=== PATIENT | female | born 1935 | race Caucasian/White ===

== ENCOUNTER 2016-12-26 20:42 | Emergency (ER) | payer MEDICARE, SELFPAY ==
[2016-12-26 19:18] LABS: BASOPHILS 0.2 %; BASOPHILS ABSOLUTE 0.01 10/3/uL (0.0-0.16); EOSINOPHILS 0.7 %; EOSINOPHILS ABSOLUTE 0.04 10/3/uL (0.0-0.53); ER CBC TAT 0 Hrs 05 Mins; IMMATURE GRANULOCYTES 0.2 %; IMMATURE GRANULOCYTES ABSOLUTE 0.01 10/3/uL (0.0-0.11); LYMPHOCYTES 23.2 %; LYMPHOCYTES ABSOLUTE 1.33 10/3/uL (0.67-4.30); MEAN CORPUSCULAR HEMOGLOB 30.5 pg (26.0-34.0); MEAN CORPUSCULAR VOLUME 87.4 fL (80-100); MONOCYTES 7.2 %; MONOCYTES ABSOLUTE 0.41 10/3/uL (0.21-1.20); NEUTROPHILS 68.5 %; NEUTROPHILS ABSOLUTE 3.93 10/3/uL (2.02-8.40); RBC DISTRIBUTION WIDTH 13.7 % (12.0-16.0); WHITE BLOOD CELLS 5.7 10/3/uL (4.5-10.5)
[2016-12-26 19:19] LABS: HEMATOCRIT 44.9 % (36.0-48.0); HEMOGLOBIN 15.7 g/dL (12.0-16.0); MANUAL DIFF NO %; PLATELET COUNT 201 10/3/uL (150-400); RED CELL COUNT 5.14 10/6/uL (4.0-5.6)
[2016-12-26 19:27] LABS: INTERNATIONAL NORMAL RATI 1.1 UNITS (-); PARTIAL THROMBO TIME 29.2 SEC (22.5-37.2); PROTIME (NOT ORD) 13.8 SEC (12.0-14.5)
[2016-12-26 19:36] LABS: BUN (BLOOD UREA NITROGEN) 21 MG/DL (6-23); CALCIUM, SERUM 9.1 MG/DL (8.5-10.4); CHEST PAIN PROFILE TAT 0 Hrs 23 Mins; CHLORIDE, SERUM 103 MMOL/L (96-112); CO2 (CARBON DIOXIDE) 28 MMOL/L (24-34); CREATININE 0.97 MG/DL (0.55-1.02); GFR AFRICAN AMERICAN 64 ML/MIN (>=60); GFR NON AFRICAN AMERICAN 56 ML/MIN (>=60); GLUCOSE, SERUM 146 MG/DL (60-99); POTASSIUM, SERUM 4.4 MMOL/L (3.5-5.3); SODIUM, SERUM 140 MMOL/L (135-148); TROPONIN I 0.02 NG/ML (<0.05)
[~2016-12-26 20:42] MED LIST: ACETSUP650 PR; ASAB PO; CALTRAT600 PO; CIP5 PO; ELIQUIS 2.5 MG2.5 MG PO; FISH OIL PO; GINKGO PO; GLUCOSAMINE PO; GLUCOSAMINEPO PO; LEVAQUIN750 MG PO; LEVOTHYROXIN125 MCG PO; LORTAB 5 PO; MAGGEL600 MG PO; MAGNESIUM TABLET PO; NATURA2 OP; OMNICEF300 PO; PROBIOTIC PO; RYTHMOL150 MG PO; SUPER B COMP PO; SYN1 PO; TYLENOL 8 HR650 MG PO; V180SR PO; V40 PO; VERAPAMIL; VERELAN180 MG PO; VITAMIN D1000 UNI1 PO; VITAMIN E PO; VITE PO; VITS; ZOFRAN4 PO; [UNRECOGNIZED DRUG - REMARK]
[2017-01-03] MEDS ORDERED: VITE PO (08:05)
[2017-01-03] MEDS ORDERED: GLUCOSAMINEPO PO (08:05)
[2017-01-03] MEDS ORDERED: SYN125 PO (08:05)
[2017-01-03] MEDS ORDERED: FISH OIL LIQUID PO (08:06)
[2017-01-03] MEDS ORDERED: VITAMIN C PO (08:06)
[2017-01-03] MEDS ORDERED: MULTIVITAMI1 PO (08:06)
[2017-01-04] MEDS ORDERED: ELIQUIS 5 MG TAB5 MG PO (09:03)
[2017-01-04] MEDS ORDERED: CARDCD180 PO (09:05)
[2017-01-04] MEDS ORDERED: C5 PO (11:23)
[2017-05-26] MEDS ORDERED: GLUCOSAMINEPO PO (18:01)
[2017-05-26] MEDS ORDERED: MAGNESIUM PO ×2 (18:02)
[2017-05-26] MEDS ORDERED: [UNRECOGNIZED DRUG - OTHER] PO (18:02)
[2017-05-26] MEDS ORDERED: [UNRECOGNIZED DRUG - OTHER] PO ×2 (18:02)
[2017-05-26] MEDS ORDERED: NEUR100 PO (18:03)
[2017-05-26] MEDS ORDERED: VITE PO (18:03)
[2017-05-26] MEDS ORDERED: SYN125 PO (18:03)
[2017-05-26] MEDS ORDERED: FISH OIL LIQUID PO (18:03)
[2017-05-26] MEDS ORDERED: BIST PO (18:04)
[2017-05-26] MEDS ORDERED: ASAB PO (18:04)
[2017-05-26] MEDS ORDERED: KLOR-CON 1010 MEQ PO (18:04)
[2017-05-31] MEDS ORDERED: PCET PO (17:52)
[2017-05-31] MEDS ORDERED: MIRALAX POWDER1 PKT PO (17:58)
[2017-05-31] MEDS ORDERED: ACETUDL PO (17:59)
== END 2016-12-26 20:52 | disposition home or self-care (01) ==
LOC: ER 20:42
PROVIDERS: Hospitalist
DX: R00.0 Tachycardia, unspecified (principal); I48.91 Unspecified atrial fibrillation; K58.9 Irritable bowel syndrome, unspecified; Z79.899 Other long term (current) drug therapy
CPT/HCPCS: 71020; 80048; 83735; 84484; 85025; 85610; 85730; 93005; 96374; 99285

== ENCOUNTER 2017-01-17 17:34 | Inpatient (IN) | payer MEDICARE, SELFPAY ==
--- NOTE | ~2017-01-17 | HP ---
History And Physical [id number] [place]. [address] NAME: ALEX THOMPSON : 37 STATUS : ADM IN [facility]#: [id number] AGE: 81 ADM/REG DATE : 01/17/17 MR#: [id number] REPORT SERV DATE: 01/18/17 DICTATED BY: DAVID BLAIR DATE: 01/17/17 REPORT STATUS : Draft TRANSCRIBED BY: MODL DATE: 01/17/17 DATE OF ADMISSION: 01/17/2017 CHIEF COMPLAINT: Abdominal pain. HISTORY OF PRESENT ILLNESS: This is a 81-year-old lady who was directly admitted from Dr. Saldivar' office for abdominal pain. The patient has a history of atrial fibrillation, not on any anticoagulation as well as hypothyroidism and IBS. The patient has had the abdominal pain for months and it is left-sided and it is very consistently postprandial. The patient will get abdominal pain within an hour of eating. Eating liquid makes it a little bit better, but the patient still has pain. The patient actually lost about 20 pounds over the past couple of months because the patient was scared of eating. The patient, otherwise, denies any nausea or vomiting. The patient also denies any loss of appetite. The patient denies any fevers, chills, or night sweats. The patient also denies any normal bowel habits. With the patient losing weight, the patient was seen by her PCP, who ordered a CT scan of the abdomen and pelvis with p.o. contrast. The CT scan was apparently benign other than gallbladder sludge. However, given the patient's continued weight loss, Dr. Saldivar was concerned and referred her as an inpatient for more evaluation and care. REVIEW OF SYSTEMS: The patient denies any fevers or chills. Also, 14-point review of systems reviewed and negative other than mentioned above. MEDICATIONS: The list is still pending at this time. ALLERGIES: NKDA. PAST MEDICAL HISTORY: 1. AFib and atrial flutter for which the patient is not on any anticoagulation. 2. Severe tricuspid regurg. 3. Mild aortic insufficiency. 4. Hypothyroidism. 5. IBS. 6. History of lung nodules, status post bronchoscopy with negative biopsy results. The patient is being considered for a possible needle biopsy. PAST SURGICAL HISTORY: 1. Small bowel obstruction due to adhesions from the past and required lysis of adhesions. 2. Appendectomy. 3. Thyroidectomy. FAMILY HISTORY: Coronary artery disease. SOCIAL HISTORY: The patient does not smoke, drink alcohol, or use any illicit drugs. 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 History And Physical [address] [address] NAME: ALEX THOMPSON : 37 STATUS : ADM IN [facility]#: [id number] AGE: 81 ADM/REG DATE : 01/17/17 MR#: [id number] REPORT SERV DATE: 01/18/17 DICTATED BY: DAVID BLAIR DATE: 01/17/17 REPORT STATUS : Draft TRANSCRIBED BY: LAURA DATE: 01/17/17 PHYSICAL EXAMINATION: VITAL SIGNS: Temperature 97.5, blood pressure 120/61, pulse 63, respiratory rate is 20, and saturating more than 95% on room air. GENERAL: The patient is alert and oriented x3 with no focal neurologic deficits. The patient is awake, does not appear to be in acute distress, and she is quite skinny. The patient is also cooperative. NECK: No JVD. No lymphadenopathy. Normal thyroid. CHEST: No midline sternotomy scar and no tenderness to palpation. LUNGS: Clear to auscultation bilaterally with normal respiratory effort on room air. CARDIOVASCULAR: Regular rate and rhythm with no murmurs, rubs, or gallops, and PMI is nondisplaced. ABDOMEN: Soft and nontender with active bowel sounds and no organomegaly. EXTREMITIES: No edema. Normal distal pulses. No calf tenderness. SKIN: Clean, dry, warm, and intact. LABORATORY DATA: There are none for now. ASSESSMENT: This is a 81-year-old lady with history of atrial fibrillation, irritable bowel syndrome, hypothyroidism, presenting with postprandial abdominal pains. 1. Postprandial abdominal pains with weight loss. 2. Chronic atrial fibrillation and atrial flutter, not on any anticoagulation. 3. Baseline history of irritable bowel syndrome. 4. Gallbladder sludge without cholecystitis per report received from PCP's office. There is no formal CT report for me to review at this time. 5. History of lung nodules with negative bronchoscopy pathology for malignancy. 6. Severe tricuspid regurgitation. 7. Mild aortic insufficiency. PLAN: My plan is to admit the patient under telemetry for observation overnight. I will go ahead and first check labs to include CMP and lactate. I will also check a prealbumin level. I will check ultrasound of the abdomen with Doppler to evaluate for any potential mesenteric ischemia. Also, go ahead and put a GI consultation. The patient will also be seen by Nutrition. I will request medical records from PCP's office to review the CT of the abdomen with p.o. contrast results. Further evaluation pending above initial evaluations. For the rest of stable past medical conditions, including atrial fibrillation, hypothyroidism, et al, I will continue home medications and monitor as needed. Standard DVT prophylaxis. The patient is full code at this time. Rubén/LAURA David Blair MD / [id number] History And Physical [address] [address] NAME: ALEX THOMPSON : 37 STATUS : ADM IN PAT#: [id number] AGE: 81 ADM/REG DATE : 01/17/17 MR#: [id number] REPORT SERV DATE: 01/18/17 DICTATED BY: DAVID BLAIR DATE: 01/17/17 REPORT STATUS : Draft TRANSCRIBED BY: LAURA DATE: 01/17/17 CC: MD Nimesh Suero M.D. Gregg Shander, M.D. Mark Thel, M.D.
--- NOTE | ~2017-01-17 | CN ---
Consultation Report [address] [place]. [address] NAME: ALEX THOMPSON : 39 STATUS : ADM IN [facility]#: [id number] AGE: 81 ADM/REG DATE : 01/17/17 MR#: [id number] REPORT SERV DATE: 01/18/17 DICTATED BY: JESÚS STUBBS DATE: 01/18/17 REPORT STATUS : Draft TRANSCRIBED BY: MODL DATE: 01/18/17 CONSULTATION DATE OF CONSULTATION: 01/18/2017 HISTORY OF PRESENT ILLNESS: This is a 81-year-old white female admitted with a three-month history of abdominal pain, weight loss, it is in the upper epigastric and radiating to the back. She had an outpatient CT, apparently had sludge and gallstones, has had pulmonary nodular disease with workup being negative biopsies today, but still being followed by Pulmonary. She has atrial fibrillation, flutter, on no anticoagulation as an outpatient. Also has severe tricuspid regurgitation and mild aortic insufficiency. She has had no nausea or vomiting. No change in bowel habits. She has had lysis of adhesions x2 in the past, Dr. Faisal Otero. She has also had appendectomy, has had tubal ligation. She has had cataract surgery. Has partial thyroidectomy, also . MEDICATIONS: None. SOCIAL HISTORY: Negative EtOH or nicotine. FAMILY HISTORY: Negative for colon cancer. LABORATORY DATA: White count 6100, hemoglobin 14.4, platelets 189,000. PHYSICAL EXAMINATION: GENERAL: Thin elderly white female, alert. HEENT: Anicteric. NECK: Negative. CHEST: Clear to percussion. HEART: Regular rate and rhythm. No murmur or gallop. ABDOMEN: Soft, nontender. Bowel sounds present. EXTREMITIES: Grossly intact. NEUROLOGY: Grossly intact. ASSESSMENT: 1. Abdominal pain and weight loss postprandially for three months and radiated to the back on occasion. 2. Nodular lung disease with negative workup to date. 3. Gallstone sludge seen on CT. 4. Hypothyroidism. 5. History of atrial fibrillation and flutter. 6. Tricuspid insufficiency and aortic insufficiency. 7. History lysis of adhesions x2. SUGGESTION: Consultation Report [address] [place]. [address] NAME: ALEX THOMPSON : 37 STATUS : ADM IN PAT#: [id number] AGE: 81 ADM/REG DATE : 01/17/17 MR#: [id number] REPORT SERV DATE: 01/18/17 DICTATED BY: JESÚS STUBBS DATE: 01/18/17 REPORT STATUS : Draft TRANSCRIBED BY: LAURA DATE: 01/18/17 1. Await mesenteric Doppler, it was done today. 2. Tentatively schedule for EGD tomorrow. 3. If both the above tests are negative, may want to consider surgical consult regarding the gallstones. We will follow with you. Thank you very much for consultation. AUSTEN/LAURA Jesús Stubbs M.D. / [id number] CC: MD Nimesh Suero M.D.
--- NOTE | ~2017-01-17 | PRECARD ---
[facility]&P [facility] [address] [place]. [address] NAME: MELL THOMPSON : 39 STATUS : ADM IN [facility]#: [id number] AGE: 81 ADM/REG DATE : 01/17/17 MR#: [id number] REPORT SERV DATE: 01/19/17 DICTATED BY: CHRIS POLLARD DATE: 01/19/17 REPORT STATUS : Draft TRANSCRIBED BY: LAURA DATE: 01/19/17 DATE OF ADMISSION: 01/17/2017 HISTORY OF PRESENT ILLNESS: Ms. Mell Thompson is a 81-year-old woman with history of atypical and typical atrial flutter, scheduled for cholecystectomy. Ms. Thompson has a history of atrial fibrillation. She has also a history of atrial flutter. She underwent an isthmus ablation by Dr. Black in 2007. She has refused anticoagulation multiple different times. More recently, she developed recurrent atrial flutter. This atrial flutter seems to be an atypical flutter. She continues to decline anticoagulation. She has seen Dr. Black twice. He has suggested sotalol because of the likely inability to successfully perform a radiofrequency ablation for this atypical flutter. She has bilateral atrial enlargement with severe tricuspid regurgitation. She has had no palpitations in the last week or so. She has had no orthopnea or PND. No stroke or stroke-like symptoms. She has had no bleeding. She has had no chest discomfort. PAST MEDICAL HISTORY: Hypothyroid, mitral regurgitation. MEDICATIONS: Synthroid, Protonix, sotalol b.i.d. FAMILY HISTORY: Noncontributory. REVIEW OF SYSTEMS: A complete review of systems obtained, pertinent negative and remarkable, except as noted above and below, all systems addressed. PHYSICAL EXAMINATION: VITAL SIGNS: Blood pressure about 105/55, heart rate 60 to 70. Telemetry demonstrates sinus rhythm. GENERAL: Comfortable, in no acute distress. HEENT: No xanthelasma. Lips without cyanosis. LUNGS: Clear to auscultation. No wheezes, rales, or rhonchi. Good breath sounds. COR: No JVD or hepatojugular reflux. No murmurs, rubs, or gallops. Impulse midclavicular line without carotid or abdominal bruits. Normal S1 and S2. ABDOMEN: Bowel sounds positive. Normal activity without tenderness, masses, or hepatosplenomegaly. EXTREMITIES: No edema or cyanosis. SKIN: Normal turgor. MS: Normal muscle strength without kyphosis/scoliosis. NEURO/PSYCH: Alert and oriented times 4. No apparent anxiety or depression. LABORATORY DATA: BUN is 19, creatinine 0.8. Hematocrit 41.2%. Again, telemetry [facility] [address] [address] NAME: MELL THOMPSON : 37 STATUS : ADM IN [facility]#: [id number] AGE: 81 ADM/REG DATE : 01/17/17 MR#: [id number] REPORT SERV DATE: 01/19/17 DICTATED BY: CHRIS POLLARD DATE: 01/19/17 REPORT STATUS : Draft TRANSCRIBED BY: LAURA DATE: 01/19/17 demonstrates sinus rhythm. ASSESSMENT: Ms. Thompson is a 81-year-old woman with cholecystitis and weight loss. She is scheduled for cholecystectomy. I think that is reasonable. If she has recurrent palpitations intraoperatively, I think diltiazem IV continuous infusion or metoprolol 5 mg boluses would most likely control her heart rate. Adenosine would only transiently lower her heart rate. She has been in sinus rhythm through this hospital stay. We will continue the sotalol. I will order an EKG, apparently it has not been performed this hospital stay. YASH/LAURA Chris Pollard M.D. / [id number] CC: MD Nimesh Suero M.D.
--- NOTE | ~2017-01-17 | OP ---
Record Of Operation [facility] [address] [place]. [address] NAME: ALEX THOMPSON : 37 STATUS : ADM IN PAT#: [id number] AGE: 81 ADM/REG DATE : 01/17/17 MR#: [id number] REPORT SERV DATE: 01/23/17 DICTATED BY: PEDRITO NOWAK JR. DATE: 01/23/17 REPORT STATUS : Draft TRANSCRIBED BY: MODL DATE: 01/23/17 DATE OF PROCEDURE: 01/23/2017 SURGEON: Pedrito Nowak MD MANAGER TERMINAL: Vilma Jorge. PROCEDURE: Exploratory laparotomy, lysis of adhesions, enterorrhaphy x2, and cholecystectomy. PREOPERATIVE DIAGNOSIS: Cholecystitis and abdominal pain. POSTOPERATIVE DIAGNOSIS: Cholecystitis and abdominal pain with small bowel obstruction. ANESTHESIA: General. INDICATIONS: The patient has presented with abdominal pain, nausea, and weight loss. Imaging does show an abnormal gallbladder. She has had previous small bowel obstruction with operation and smaller resection. Operation for cholecystectomy was indicated. FINDINGS: On initial entrance into the abdomen and the periumbilical region, there were noted to be extensive adhesions of the bowel to the overlying perineum. There was evidence of small bowel obstruction with dilatation of the bowel. With these bowel loops dissected free, there was dense adherence that required repair of the bowel in 2 places. The gallbladder was distended and was removed. It was felt that the source of the pain was very possibly the small bowel obstruction. No other significant abnormalities were encountered. DESCRIPTION OF PROCEDURE: With adequate general anesthesia, the patient was placed in the supine position. The abdomen was prepped and sterilely. 0.5% Marcaine was used for local infiltration. Midline incision was made at the umbilicus. This was deepened through the subcutaneous tissues. The fascia and perineum were opened and the above-noted findings were encountered. Then, the incision was extended. The underlying adhesions were dissected sharply and the bowel was freed up entirely. Areas of the small bowel then repaired with sutures of 3-0 silk repair. Once this was accomplished, the gallbladder was identified, it was taken again in retrograde fashion. Cystic duct and artery were identified, clipped, and divided securing the duct with 2 clips. Bleeding within the bed was controlled with electrocautery. The abdomen was irrigated with copious amounts of saline. Hemostasis was assured. Then, the wound was closed by approximating the fascia with running 0 PDS, subcutaneous Vicryl, and subcuticular Monocryl. Sterile dressing was applied. The patient left the operating room in satisfactory condition. BLOOD LOSS: Was 30 mL. Record Of Operation [address] [address] NAME: ALEX THOMPSON : 37 STATUS : ADM IN [facility]#: [id number] AGE: 81 ADM/REG DATE : 01/17/17 MR#: [id number] REPORT SERV DATE: 01/23/17 DICTATED BY: PEDRITO NOWAK JR. DATE: 01/23/17 REPORT STATUS : Draft TRANSCRIBED BY: LAURA DATE: 01/23/17 TARAH/LAURA Pedrito Nowak Jr., M.D. / [id number] CC: MD Nimesh Suero M.D.
--- NOTE | ~2017-01-17 | IDS ---
Interim Discharge Summary [facility] [address] [place]. [address] NAME: ALEX THOMPSON : 37 STATUS : ADM IN [facility]#: [id number] AGE: 81 ADM/REG DATE : 01/17/17 MR#: [id number] REPORT SERV DATE: 02/02/17 DICTATED BY: JESÚS BAGLEY DATE: 02/01/17 REPORT STATUS : Draft TRANSCRIBED BY: MODL DATE: 02/01/17 ADMISSION DATE: 01/17/2017 DISCHARGE DATE: Interim summary covers period 01/24/2017 through 02/01/2017. CURRENT DIAGNOSES: 1. Recurrent partial bowel obstruction, postoperative exploratory laparotomy, lysis of adhesions, enterorrhaphy x2, and cholecystectomy, 01/23/2017, for cholecystitis and abdominal pain with small-bowel obstruction. 2. Intermittent small volume upper gastrointestinal bleeding with continuous NG tube suction. 3. Paroxysmal atrial fibrillation with remote history of ablation, not on anticoagulation per the patient's choice. 4. Tricuspid and aortic regurgitation per echocardiography. 5. Nonsustained ventricular tachycardia on telemetry monitoring, not persistent. 6. History of splenic artery aneurysms. 7. Renal stone disease. 8. Glaucoma, postsurgery. 9. Multiple bilateral pulmonary nodules, status post bronchoscopy, navigational bronchoscopy, and radial endobronchial ultrasound, 10/28/2016, with negative histology for malignancy. 10.Weight loss. 11.Hypothyroid with mildly elevated TSH, noting recent outpatient dosage adjustment. 12.Electrolyte abnormalities, treated. 13.Diffuse myalgias and arthralgias associated with postoperative complications, improved. 14.Severe throat and ear pain secondary to prolonged nasogastric tube use. OPERATIONS AND PROCEDURES: During this time period, none. INTERIM SUMMARY: This is a 81-year-old white female, who was a direct admission on 01/17/[address] Moss with postprandial abdominal pain with weight loss. HOSPITAL COURSE: Her hospital course from admission through 01/23/2017 is as outlined on the interim summary dictated by Dr. Moss. She was initially seen by me on 01/24/2017. She was one day postoperative. She was tolerating liquids without nausea or vomiting. She was out of bed with no cardiovascular symptoms. She subsequently developed abdominal distention and pain. An NG tube was placed and 900 mL of gastric secretions were almost immediately obtained. Her symptoms improved. Over the last week, she has required continued NG tube drainage because of persistent ileus versus partial small-bowel obstruction by exam and plain radiographs. Interim Discharge Summary [address] [place]. [address] NAME: ALEX THOMPSON : 37 STATUS : ADM IN PAT#: [id number] AGE: 81 ADM/REG DATE : 01/17/17 MR#: [id number] REPORT SERV DATE: 02/02/17 DICTATED BY: JESÚS BAGLEY DATE: 02/01/17 REPORT STATUS : Draft TRANSCRIBED BY: MODZoe DATE: 02/01/17 She has had some intermittent blood tinged NG aspirate that has been thought secondary to possible NG tube irritation. She is on a Protonix drip with a stable hemoglobin. Today, she underwent a water soluble Gastrografin GI and small-bowel follow-through. Findings are dilated small bowel loops throughout the abdomen. Contrast does propagate through the small bowel and appears to reach the ascending colon after approximately 90 minutes, reaching the hepatic flexure after approximately three hours. Findings were thought to represent partial obstruction or severe ileus. There was a normal appearance of the stomach and duodenum. Splenic artery aneurysms measuring 3.1 and 2 cm similar to previous imaging present. She is being followed by Dr. Otero. Further therapy to be dictated by him pending improvement in bowel function with Gastrografin. She has had some paroxysms of atrial fibrillation, but currently is back in a sinus rhythm. She initially was treated with amiodarone, but developed bradycardia. It is thought she may need a future ablation, but at this time Cardiology is satisfied with her current progress. Hospitalist care will be assumed by Dr. Moss on 02/02/2017. DD/LAURA Jesús Bagley M.D. / [id number] CC: Julisa Barajas M.D.
--- NOTE | ~2017-01-17 | CN ---
Consultation Report [facility] [address] [place]. [address] NAME: ALEX THOMPSON : 37 STATUS : ADM IN PAT#: [id number] AGE: 81 ADM/REG DATE : 01/17/17 MR#: [id number] REPORT SERV DATE: 01/24/17 DICTATED BY: TRAY SIN DATE: 01/24/17 REPORT STATUS : Draft TRANSCRIBED BY: LAURA DATE: 01/24/17 ELECTROPHYSIOLOGY CONSULTATION DATE OF CONSULTATION: 01/24/2017 REASON FOR CONSULTATION: Tachy-franklin syndrome. HISTORY OF PRESENT ILLNESS: Ms. Thompson is a pleasant 81-year-old woman whom I had seen recently at the [facility] in consult from her primary slat pickler, Dr. Pollard. The patient had presented to the hospital this time with complaints of abdominal pain and bloating and it was eventually discovered to be secondary to cholecystitis and she has undergone a cholecystectomy. Telemetry and EKGs had demonstrated sinus bradycardia while taking the sotalol. There was one episode of what appears to be atypical atrial flutter on 01/19/2017 that terminated spontaneously. Because she could not take the sotalol because of bradycardia and she was having pending surgery, she supposed to be started on amiodarone which she is currently taking at 200 mg daily, and at the present time, she appears to be maintaining sinus rhythm without any significant bradycardia. At this point in time, she feels fine on the amiodarone. She does, however, have long-term concern about this medication due to its multiple side effects. PAST MEDICAL HISTORY: 1. Notable for cholecystitis, status post cholecystectomy on this admission. 2. History of typical atrial flutter, status post radiofrequency ablation by la in 2007. 3. Atypical atrial flutter documented on previous admissions also noted on this admission as well. 4. Most likely an element of sick sinus syndrome. The patient with profound bradycardia taking low-dose sotalol. 5. Hypothyroidism. 6. Severe tricuspid regurgitation. Mild mitral regurgitation. Normal ejection fraction. HOME MEDICATIONS: Include sotalol which she is currently not taking, but at the time of admission, she was only taking a quarter of a tablet 20 mg q.12 hours, levothyroxine, and fish oil. FAMILY HISTORY: Negative for premature coronary artery disease or sudden cardiac . SOCIAL HISTORY: Negative for tobacco or alcohol. REVIEW OF SYSTEMS: As noted above, all other systems reviewed and negative. PHYSICAL EXAMINATION: VITAL SIGNS: Currently in sinus rhythm. Heart rate of 76 beats per minute, blood pressure 108/52, respirations 16, and afebrile. Consultation Report [facility] [address] [place]. [address] NAME: ALEX THOMPSON : 39 STATUS : ADM IN [facility]#: [id number] AGE: 81 ADM/REG DATE : 01/17/17 MR#: [id number] REPORT SERV DATE: 01/24/17 DICTATED BY: TRAY SIN DATE: 01/24/17 REPORT STATUS : Draft TRANSCRIBED BY: LAURA DATE: 01/24/17 GENERAL: Well developed, well nourished. HEENT: No icterus. Good dentition. NECK: Supple. No masses or thyromegaly LUNGS: Breathing comfortably. No rales or wheezes. COR: Normal S1, S2. No S3 or S4. No murmurs, clicks, rubs. No JVD ABD: Soft, nondistended, nontender, no hepatosplenomegaly. EXT: No clubbing, cyanosis or edema. Peripheral pulses 2+/=bilaterally. SKIN: Warm and dry. No visible lesions. MS: Chest wall without deformity, no obvious clavicular fractures. NEURO/PSYCH: Oriented X3. No anxiety or depression. IMAGING: There are multiple EKGs in the chart. Some of which show sinus bradycardia on admission while she was taking sotalol. There are other EKGs demonstrating what appears to be an atypical atrial flutter at a rate of 142 beats per minute. There are other EKG showing normal sinus rhythm at normal intervals. 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 On sotalol, she has demonstrated sinus bradycardia. She has had some breakthrough events, but the dose of sotalol has been so low. It is hard to say if it is ineffective or not. Currently, she is on amiodarone and seems to be tolerating this medication well without any significant side effects and is not having any profound bradycardia. I think for the present time, I would recommend that she remain on the amiodarone and get through her surgery and now her recovery from her cholecystectomy. I would be glad to see her back in the office in which case if we decide that we wanted to try to use sotalol again in place of the amiodarone likely we would need to place a permanent pacemaker as well due to the patient's sick sinus syndrome and tendency for severe symptomatic sinus bradycardia at least while receiving even low-dose antiarrhythmic agents. GS/MODL Tray Sin M.D. / [id number] CC: Julisa Barajas M.D.
--- NOTE | ~2017-01-17 | IDS ---
Interim Discharge Summary [facility] [address] [place]. [address] NAME: ALEX THOMPSON : 37 STATUS : ADM IN PAT#: [id number] AGE: 81 ADM/REG DATE : 01/17/17 MR#: [id number] REPORT SERV DATE: 01/23/17 DICTATED BY: DAVID BLAIR DATE: 01/23/17 REPORT STATUS : Draft TRANSCRIBED BY: MODL DATE: 01/23/17 ADMISSION DATE: 01/17/2017 DISCHARGE DATE: WORKING DIAGNOSES: 1. Partial small bowel obstruction. 2. Postprandial abdominal pain. 3. Unintentional weight loss. 4. Gallstone and sludge, status post laparoscopic cholecystectomy today (01/23/2017). 5. Atrial fibrillation with rapid ventricular response, controlled with amiodarone. The patient does have a baseline history of atrial fibrillation with rapid ventricular response. 6. Nodular lung disease, has been worked up for malignancy with bronchoscopic biopsies, which has been negative thus far. Outside followup chest CT did not reveal overt changes. There is perhaps plans for needle biopsy in the future based on the patient's preference. 7. Irritable bowel syndrome. 8. Hypothyroidism. CONSULTANTS: 1. Dr. Otero of Surgery. 2. Dr. Castillo of GI. 3. [facility] Cardiology. PROCEDURES: 1. EGD performed on 01/19/2017, revealed grossly normal upper GI tract. 2. Laparoscopic cholecystectomy performed today, 01/23/2017, operative report is still pending at this time. HOSPITAL COURSE: This is a 81-year-old lady, who was admitted to the hospital with postprandial abdominal pain with unintentional weight loss. For details, please refer to my own H and P. In summary, the patient was admitted and was given supportive care. The patient had a mesenteric ultrasound, which was negative for any bowel ischemia. GI was consulted and performed an EGD on 01/19/2017, with grossly benign findings as mentioned above. The patient's labs have been completely benign including CBC, LFTs, and lactate. The patient did have a cholelithiasis without cholecystitis as well as some biliary sludge. General Surgery was then consulted, and cholecystectomy was planned. Cardiology was consulted for cardiac clearance and that is when the patient developed an atrial fibrillation with RVR over the weekend. The patient does have a baseline history of atrial fibrillation that was controlled with sotalol, but as the patient had borderline hypotension, this was switched to amiodarone. The patient actually have converted to normal sinus and actually became sinus bradycardic and thus dose adjustment is being made for the amiodarone. The patient underwent cholecystectomy today and the official operative report is still pending at this time, but apparently, the partial small bowel obstruction was identified in the operating room, which may explain the patient's symptoms better than gallstones and sludge. Of note, this partial small bowel obstruction was not identified on Interim Discharge Summary [address] [address] NAME: ALEX THOMPSON : 37 STATUS : ADM IN PAT#: [id number] AGE: 81 ADM/REG DATE : 01/17/17 MR#: [id number] REPORT SERV DATE: 01/23/17 DICTATED BY: DAVID BLAIR DATE: 01/23/17 REPORT STATUS : Draft TRANSCRIBED BY: MODZoe DATE: 01/23/17 CT of the abdomen and pelvis that was performed outside at the PCPs office. The patient has a history of nodular lung disease that is highly suspicious for malignancy. The patient did have a bronchoscopic biopsy of the lesions performed earlier this year that has been negative. The patient had a followup CT scan through the PCP, and per outside report, her lung lesions have not gotten worse. The patient is being considered for a needle biopsy as an outpatient, and she will need to continue to follow with Pulmonology. Otherwise, the patient has not had any other acute issues. I anticipate the patient will be able to be discharged home soon. HERBER/LAURA David Blair MD / [id number] CC: MD Nimesh Suero M.D.
--- NOTE | ~2017-01-17 | EGD ---
EGD REPORT [facility] [address] [place] [address] NAME: MELL THOMPSON : 37 STATUS : ADM IN PAT#: [id number] AGE: 81 ADM/REG DATE : 01/17/17 MR#: [id number] REPORT SERV DATE: 01/19/17 DICTATED BY: JESÚS STUBBS DATE: 01/19/17 REPORT STATUS : Draft TRANSCRIBED BY: [employer] DATE: 01/19/17 Endoscopy Center Patient Name: Mell Thompson Date of : 1935 Attending MD: JESÚS STUBBS MD Procedure Date No Time: 01/19/2017 Procedure: Upper GI endoscopy Indications: Epigastric abdominal pain, Weight loss Referring MD: DANIEL JOHNSON Medicines: as per anesthesia Complications: No immediate complications. Procedure: Pre-Anesthesia Assessment: - ASA Grade Assessment: III - A patient with severe systemic disease. After obtaining informed consent, the endoscope was passed under direct vision. Throughout the procedure, the patient's blood pressure, pulse, and oxygen saturations were monitored continuously. The GIF [id number] was introduced through the mouth, and advanced to the third part of duodenum. The upper GI endoscopy was accomplished without difficulty. The patient tolerated the procedure. Findings: The examined esophagus was normal. The entire examined stomach was normal. The cardia and gastric fundus were normal on retroflexion. The examined duodenum was normal. Impression: - Normal esophagus. - Normal stomach. - Normal examined duodenum. Recommendation: - Continue present medications. Procedure Code(s): --- Professional --- 56373, Esophagogastroduodenoscopy, flexible, transoral; diagnostic, including collection of specimen(s) by brushing or washing, when performed (separate procedure) Diagnosis Code(s): --- Professional --- R10.13, Epigastric pain R63.4, Abnormal weight loss EGD REPORT [facility] [address] [place]. [address] NAME: MELL THOMPSON : 37 STATUS : ADM IN [facility]#: [id number] AGE: 81 ADM/REG DATE : 01/17/17 MR#: [id number] REPORT SERV DATE: 01/19/17 DICTATED BY: JESÚS STUBBS. DATE: 01/19/17 REPORT STATUS : Draft TRANSCRIBED BY: [employer] DATE: 01/19/17 CPT copyright 2013 [employer]. All rights reserved. The codes documented in this report are preliminary and upon window shade ring coverer review may be revised to meet current compliance requirements. JESÚS STUBBS MD 01/19/2017 1:50 PM This report has been signed electronically. Number of Addenda: 0 Note Initiated On: 01/19/2017 1:21 PM Scope Withdrawal Time 0 hours 0 minutes 0 seconds [address] [place] [address]
--- NOTE | ~2017-01-17 | DS ---
Discharge Summary [facility] [address] [place]. [address] NAME: ALEX THOMPSON : 37 STATUS : DIS IN PAT#: [id number] AGE: 81 ADM/REG DATE : 01/17/17 MR#: [id number] REPORT SERV DATE: 02/12/17 DICTATED BY: JESÚS SALAZAR DATE: 02/11/17 REPORT STATUS : Draft TRANSCRIBED BY: MODL DATE: 02/11/17 ADMISSION DATE: 01/17/2017 DISCHARGE DATE: 02/11/2017 DISCHARGE DIAGNOSES: 1. Recurrent partial bowel obstruction, postoperative exploratory laparotomy, lysis of adhesions, enterorrhaphy x2, and cholecystectomy, 01/23/2017, for cholecystitis and abdominal pain with small-bowel obstruction. 2. Prolonged ileus. 3. Intermittent small volume upper gastrointestinal bleeding with continuous NG tube suction. 4. Paroxysmal atrial flutter with remote history of ablation, possible atypical flutter, not on anticoagulation per the patient's choice. Treated intermittently during hospitalization with amiodarone, discontinued because of bradycardia, discharged in sinus rhythm. 5. Tricuspid and aortic regurgitation per echocardiography. 6. Nonpersistent, nonsustained ventricular tachycardia, on telemetry monitoring. 7. 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 8. Renal stone disease. 9. Glaucoma, post surgery. 10.Multiple bilateral pulmonary nodules, status post bronchoscopy, navigational bronchoscopy, and radial endobronchial ultrasound, 10/28/2016, with negative histology for malignancy. 11.Weight loss. 12.Hypothyroid with mildly elevated TSH on admission, higher TSH during hospitalization thought to be from impaired Synthroid absorption. 13.Multiple electrolyte abnormalities, treated. 14.Diffuse myalgias and arthralgias associated with postoperative complications, resolved. 15.Remarkably severe throat and ear pain secondary to prolonged nasogastric tube use, resolved. OPERATIONS AND PROCEDURES: Exploratory laparotomy, lysis of adhesions, enterorrhaphy x2, and cholecystectomy, 01/23/2017, Dr. Otero. PRESENT ILLNESS: This is a 81-year-old white female, who was a direct admission on 01/17/[address] Moss with postprandial abdominal pain with weight loss. Her hospital course from admission through 01/23/2017 is as outlined on interim summary dictated by Dr. Moss. Her hospital course from 01/24/2017 through 02/01/2017 is as outlined on interim summary dictated by the undersigned. She was seen by Dr. Menezes on 02/02/2017, 02/03/2017, and 02/04/[address] Moss on 02/05/2017 and 02/06/2017. Discharge Summary [facility] [address] [place]. [address] NAME: ALEX THOMPSON : 37 STATUS : DIS IN PAT#: [id number] AGE: 81 ADM/REG DATE : 01/17/17 MR#: [id number] REPORT SERV DATE: 02/12/17 DICTATED BY: JESÚS SALAZAR DATE: 02/11/17 REPORT STATUS : Draft TRANSCRIBED BY: MODL DATE: 02/11/17 Her hospitalist care was assumed by the undersigned again on 02/07/2017 and she was followed until discharge. She continued to have intermittent abdominal symptoms consistent with ileus/partial small- bowel obstruction. On 02/08/2017, she was seen at 1720 hours with pain and nausea. She was frankly miserable. She had not had a bowel movement or gas per rectum. She was belching sour-tasting secretions. She looked worse than she had before. She was in atrial flutter. She had an obstructive bowel sound pattern with abdominal distention, though her abdomen was soft. She subsequently developed some chest pain followed by generalized pain. Her evaluation included an EKG that showed atrial flutter with PVCs. A CMP was normal except her BUN had increased to 19 and creatinine to 1.11. A TSH had increased to 22.2. Her potassium was 5.2, mag 2.2, phosphorus 3.2, ionized calcium 4.5, and lactate 1.8. A CBC showed a white count of 9.8, hemoglobin 15.2, and platelets of 437,000. A flat and upright abdominal film was remarkable for gaseous distention of the gastric lumen and small bowel loops. The intestinal pattern was consistent with ileus versus obstruction. She had significant air-fluid levels. She was placed n.p.o. Her Eliquis was held. She did not want an NG tube. She was given aggressive crystalloid volume resuscitation in addition to parenteral medications for pain and nausea control. I spoke with Dr. Otero, who concurred with this therapy. On the following day, she had symptomatically improved. Her nausea was less intense. She began to have bowel movements. A repeat flat and upright abdomen showed similar bowel gas pattern. With hydration, her BUN and creatinine had fallen. Dr. Otero suggested continuing current therapy and considering a repeat small bowel follow- through or CT abdomen with contrast. Her symptoms continued to improve. She developed diarrhea. Her abdominal pain resolved. Her nausea resolved. On the afternoon of 02/10/2017, she thought she could eat some homemade vegetable soup. With this p.o. intake, she had no recurrent nausea, vomiting, bloating, pain, or diarrhea and she overall felt better. After prolonged discussion with her and her daughter on the evening of 02/10/2017 and the morning of 02/11/2017, it was elected to pursue a repeat CT scan with contrast to evaluate her current symptoms, recurrent left upper quadrant pain, which she thought was different from her ileus/bowel obstruction pain, and to assess the status of her splenic artery aneurysms. This was done on 02/11/2017. I spoke with Dr. South, reading radiologist, who reviewed Discharge Summary [address] [address] NAME: ALEX THOMPSON : 37 STATUS : DIS IN PAT#: [id number] AGE: 81 ADM/REG DATE : 01/17/17 MR#: [id number] REPORT SERV DATE: 02/12/17 DICTATED BY: JESÚS SALAZAR DATE: 02/11/17 REPORT STATUS : Draft TRANSCRIBED BY: MODL DATE: 02/11/17 these films. Findings were mildly distended loops of small bowel with wall thickening and air-fluid levels present in a nonobstructive pattern suggestive of ileus. There was a small amount of free fluid in the cul-de-sac. There was fluid within the endometrium of the uterus with calcification of the myometrium. There were small bilateral pleural effusions. No other acute abnormalities were seen. Her splenic artery aneurysms per Dr. South were less than 2 cm. This was reviewed with the patient and daughter. She thought that she would like a trial at home on a home diet, 6 small feedings per day with p.r.n. medications for pain and nausea. With her clinical improvement, this seemed reasonable. She had been seen earlier by Dr. Garcia for Dr. Otero, who concurred. After her acute GI episode on 02/08/2017, she reverted to sinus rhythm with some PVCs. EP thought that she would need a repeat ablation, but elected to defer this at this time. They also suggested Eliquis which the patient had not wanted to use in the past and does not want to use at this time. She is being discharged home today with outpatient followup to see Dr. Saldivar in one to two weeks, her primary care physician, and Dr. Pollard on 03/02/2017. She will eat 6 small meals per day. Her activity will be as tolerated. DISCHARGE MEDICATIONS: Synthroid 125 mcg daily with followup TSH in two to four weeks, Protonix 40 mg twice daily for 30 days, vitamin E 400 units daily, glucosamine 1500 mg daily, fish oil 30 mL daily, vitamin C daily, multivitamin daily, Zofran 4 mg ODT every 4 hours as needed for nausea, Percocet 5/325 every four to six hours as needed for severe pain. She will not use Betapace or amiodarone at this time. She does not plan to take Eliquis. Discharge time greater than 30 minutes. DD/MODL Jesús Salazar M.D. / [id number] CC: Julisa Barajas M.D. John Gwin Jr., M.D. Mark Thel, M.D.
[~2017-01-17 17:34] MED LIST changes: +C5 PO; +CARDCD180 PO; +ELIQUIS 5 MG TAB5 MG PO; +FISH OIL LIQUID PO; +MULTIVITAMI1 PO; +SYN125 PO; +VITAMIN C PO
[2017-01-17] MEDS ORDERED: BETAPACE80 PO (18:50)
[2017-01-17 20:19] LABS: BASOPHILS 0.2 %; BASOPHILS ABSOLUTE 0.01 10/3/uL (0.0-0.16); EOSINOPHILS 0.7 %; EOSINOPHILS ABSOLUTE 0.04 10/3/uL (0.0-0.53); HEMATOCRIT 39.3 % (36.0-48.0); HEMOGLOBIN 13.7 g/dL (12.0-16.0); IMMATURE GRANULOCYTES 0.2 %; IMMATURE GRANULOCYTES ABSOLUTE 0.01 10/3/uL (0.0-0.11); LYMPHOCYTES 23.1 %; MANUAL DIFF NO %; MEAN CORPUS HGB CONC 34.9 g/dL (32.0-36.0); MEAN CORPUSCULAR HEMOGLOB 30.1 pg (26.0-34.0); MEAN CORPUSCULAR VOLUME 86.4 fL (80-100); MEAN PLATELET VOLUME 10.6 fL (9.2-13.0); MONOCYTES 8.9 %; MONOCYTES ABSOLUTE 0.54 10/3/uL (0.21-1.20); NEUTROPHILS 66.9 %; NEUTROPHILS ABSOLUTE 4.06 10/3/uL (2.02-8.40); PLATELET COUNT 176 10/3/uL (150-400); RBC DISTRIBUTION WIDTH 13.4 % (12.0-16.0); RED CELL COUNT 4.55 10/6/uL (4.0-5.6); WHITE BLOOD CELLS 6.1 10/3/uL (4.5-10.5)
[2017-01-17 20:43] LABS: A/G RATIO 1.2 (0.7-1.9); ALBUMIN 3.6 G/DL (3.5-5.0); ALKALINE PHOSPHATASE 69 U/L (45-117); BUN (BLOOD UREA NITROGEN) 21 MG/DL (6-23); CHLORIDE, SERUM 103 MMOL/L (96-112); CO2 (CARBON DIOXIDE) 26 MMOL/L (24-34); CREATININE 0.82 MG/DL (0.55-1.02); FREE T4 1.39 NG/DL (0.76-1.46); GFR AFRICAN AMERICAN 79 ML/MIN (>=60); GFR NON AFRICAN AMERICAN 68 ML/MIN (>=60); GLOBULIN 3.1 G/DL (2.5-4.1); POTASSIUM, SERUM 4.2 MMOL/L (3.5-5.3); SGOT(AST) 16 U/L (5-40); SGPT(ALT) 21 U/L (5-65); SODIUM, SERUM 138 MMOL/L (135-148); TOTAL BILIRUBIN 0.6 MG/DL (0-1.2); TOTAL PROTEIN 6.7 G/DL (6.0-8.5)
[2017-01-17 20:44] LABS: GLUCOSE, SERUM 92 MG/DL (60-99)
[2017-01-18 04:53] LABS: BASOPHILS 0.2 %; BASOPHILS ABSOLUTE 0.01 10/3/uL (0.0-0.16); EOSINOPHILS 0.8 %; EOSINOPHILS ABSOLUTE 0.05 10/3/uL (0.0-0.53); HEMATOCRIT 41.2 % (36.0-48.0); HEMOGLOBIN 14.4 g/dL (12.0-16.0); IMMATURE GRANULOCYTES 0.2 %; IMMATURE GRANULOCYTES ABSOLUTE 0.01 10/3/uL (0.0-0.11); LYMPHOCYTES 21.7 %; LYMPHOCYTES ABSOLUTE 1.33 10/3/uL (0.67-4.30); MEAN CORPUSCULAR HEMOGLOB 30.1 pg (26.0-34.0); MEAN CORPUSCULAR VOLUME 86.2 fL (80-100); MEAN PLATELET VOLUME 10.4 fL (9.2-13.0); MONOCYTES 7.3 %; MONOCYTES ABSOLUTE 0.45 10/3/uL (0.21-1.20); NEUTROPHILS 69.8 %; NEUTROPHILS ABSOLUTE 4.28 10/3/uL (2.02-8.40); PLATELET COUNT 189 10/3/uL (150-400); RBC DISTRIBUTION WIDTH 13.1 % (12.0-16.0); RED CELL COUNT 4.78 10/6/uL (4.0-5.6); WHITE BLOOD CELLS 6.1 10/3/uL (4.5-10.5)
[2017-01-18 04:58] LABS: MANUAL DIFF NO %
[2017-01-18 05:11] LABS: BUN (BLOOD UREA NITROGEN) 19 MG/DL (6-23); CALCIUM, SERUM 9.4 MG/DL (8.5-10.4); CHLORIDE, SERUM 103 MMOL/L (96-112); CO2 (CARBON DIOXIDE) 26 MMOL/L (24-34); GFR AFRICAN AMERICAN 81 ML/MIN (>=60); GFR NON AFRICAN AMERICAN 70 ML/MIN (>=60); GLUCOSE, SERUM 102 MG/DL (60-99); POTASSIUM, SERUM 3.9 MMOL/L (3.5-5.3); SODIUM, SERUM 140 MMOL/L (135-148)
[2017-01-18 05:58] LABS: PREALBUMIN 22.5 MG/DL (17.0-43.0)
[2017-01-19 23:03] LABS: TROPONIN I <0.02 NG/ML (<0.05)
[2017-01-19 23:04] LABS: CPK 48 U/L (0-200)
[2017-01-20 06:51] LABS: CPK 50 U/L (0-200); TROPONIN I <0.02 NG/ML (<0.05)
[2017-01-20 06:52] LABS: CK-MB 1.1 NG/ML
[2017-01-20 14:42] LABS: CPK 54 U/L (0-200); TROPONIN I <0.02 NG/ML (<0.05)
[2017-01-20 14:43] LABS: CK-MB 1.1 NG/ML
[2017-01-22 08:22] LABS: BASOPHILS 0.2 %; BASOPHILS ABSOLUTE 0.01 10/3/uL (0.0-0.16); EOSINOPHILS 0.7 %; EOSINOPHILS ABSOLUTE 0.04 10/3/uL (0.0-0.53); HEMOGLOBIN 12.6 g/dL (12.0-16.0); IMMATURE GRANULOCYTES 0.2 %; IMMATURE GRANULOCYTES ABSOLUTE 0.01 10/3/uL (0.0-0.11); LYMPHOCYTES 28.1 %; LYMPHOCYTES ABSOLUTE 1.65 10/3/uL (0.67-4.30); MEAN CORPUS HGB CONC 35.2 g/dL (32.0-36.0); MEAN CORPUSCULAR VOLUME 85.2 fL (80-100); MEAN PLATELET VOLUME 10.8 fL (9.2-13.0); MONOCYTES 8.5 %; NEUTROPHILS 62.3 %; NEUTROPHILS ABSOLUTE 3.67 10/3/uL (2.02-8.40); PLATELET COUNT 146 10/3/uL (150-400); RBC DISTRIBUTION WIDTH 13.5 % (12.0-16.0); WHITE BLOOD CELLS 5.9 10/3/uL (4.5-10.5)
[2017-01-22 08:24] LABS: HEMATOCRIT 35.8 % (36.0-48.0); MANUAL DIFF NO %
[2017-01-22 08:29] LABS: INTERNATIONAL NORMAL RATI 1.3 UNITS (-); PROTIME (NOT ORD) 16.1 SEC (12.0-14.5)
[2017-01-22 08:48] LABS: A/G RATIO 1.3 (0.7-1.9); ALKALINE PHOSPHATASE 58 U/L (45-117); BUN (BLOOD UREA NITROGEN) 8 MG/DL (6-23); CALCIUM, SERUM 8.4 MG/DL (8.5-10.4); CHLORIDE, SERUM 105 MMOL/L (96-112); CO2 (CARBON DIOXIDE) 26 MMOL/L (24-34); CREATININE 0.99 MG/DL (0.55-1.02); GFR AFRICAN AMERICAN 63 ML/MIN (>=60); GFR NON AFRICAN AMERICAN 54 ML/MIN (>=60); GLOBULIN 2.4 G/DL (2.5-4.1); GLUCOSE, SERUM 102 MG/DL (60-99); POTASSIUM, SERUM 4.1 MMOL/L (3.5-5.3); SGOT(AST) 15 U/L (5-40); SGPT(ALT) 23 U/L (5-65); SODIUM, SERUM 138 MMOL/L (135-148); TOTAL BILIRUBIN 0.7 MG/DL (0-1.2); TOTAL PROTEIN 5.4 G/DL (6.0-8.5)
[2017-01-22 09:15] LABS: PHOSPHORUS, SERUM 2.7 MG/DL (2.5-4.5)
[2017-01-24 05:52] LABS: BASOPHILS 0 %; EOSINOPHILS 0 %; HEMATOCRIT 34.7 % (36.0-48.0); IMMATURE GRANULOCYTES 0.2 %; IMMATURE GRANULOCYTES ABSOLUTE 0.02 10/3/uL (0.0-0.11); LYMPHOCYTES ABSOLUTE 0.57 10/3/uL (0.67-4.30); MEAN CORPUS HGB CONC 34.6 g/dL (32.0-36.0); MEAN CORPUSCULAR HEMOGLOB 30.1 pg (26.0-34.0); MEAN PLATELET VOLUME 11.3 fL (9.2-13.0); MONOCYTES 7.3 %; MONOCYTES ABSOLUTE 0.83 10/3/uL (0.21-1.20); NEUTROPHILS 87.5 %; NEUTROPHILS ABSOLUTE 9.97 10/3/uL (2.02-8.40); PLATELET COUNT 160 10/3/uL (150-400); RBC DISTRIBUTION WIDTH 13.7 % (12.0-16.0); RED CELL COUNT 3.99 10/6/uL (4.0-5.6)
[2017-01-24 05:53] LABS: MANUAL DIFF NO %; WHITE BLOOD CELLS 11.4 10/3/uL (4.5-10.5)
[2017-01-24 05:58] LABS: ALBUMIN 2.6 G/DL (3.5-5.0); ALKALINE PHOSPHATASE 56 U/L (45-117); BUN (BLOOD UREA NITROGEN) 7 MG/DL (6-23); CALCIUM, SERUM 8.4 MG/DL (8.5-10.4); CHLORIDE, SERUM 103 MMOL/L (96-112); CO2 (CARBON DIOXIDE) 29 MMOL/L (24-34); CREATININE 0.93 MG/DL (0.55-1.02); GFR AFRICAN AMERICAN 68 ML/MIN (>=60); GFR NON AFRICAN AMERICAN 58 ML/MIN (>=60); GLOBULIN 2.5 G/DL (2.5-4.1); GLUCOSE, SERUM 120 MG/DL (60-99); POTASSIUM, SERUM 4.1 MMOL/L (3.5-5.3); SGOT(AST) 50 U/L (5-40); SGPT(ALT) 53 U/L (5-65); SODIUM, SERUM 138 MMOL/L (135-148); TOTAL BILIRUBIN 0.6 MG/DL (0-1.2); TOTAL PROTEIN 5.1 G/DL (6.0-8.5)
[2017-01-25 06:00] LABS: BASOPHILS 0.1 %; BASOPHILS ABSOLUTE 0.01 10/3/uL (0.0-0.16); EOSINOPHILS 0.1 %; EOSINOPHILS ABSOLUTE 0.01 10/3/uL (0.0-0.53); HEMATOCRIT 34.4 % (36.0-48.0); HEMOGLOBIN 11.9 g/dL (12.0-16.0); IMMATURE GRANULOCYTES 0.1 %; IMMATURE GRANULOCYTES ABSOLUTE 0.01 10/3/uL (0.0-0.11); LYMPHOCYTES ABSOLUTE 0.84 10/3/uL (0.67-4.30); MEAN CORPUS HGB CONC 34.6 g/dL (32.0-36.0); MEAN CORPUSCULAR HEMOGLOB 30.5 pg (26.0-34.0); MEAN CORPUSCULAR VOLUME 88.2 fL (80-100); MEAN PLATELET VOLUME 11.6 fL (9.2-13.0); MONOCYTES ABSOLUTE 0.65 10/3/uL (0.21-1.20); NEUTROPHILS 83.7 %; NEUTROPHILS ABSOLUTE 7.82 10/3/uL (2.02-8.40); PLATELET COUNT 145 10/3/uL (150-400); RBC DISTRIBUTION WIDTH 13.7 % (12.0-16.0); WHITE BLOOD CELLS 9.3 10/3/uL (4.5-10.5)
[2017-01-25 06:01] LABS: MANUAL DIFF NO %
[2017-01-25 06:05] LABS: BUN (BLOOD UREA NITROGEN) 9 MG/DL (6-23); CALCIUM, SERUM 8.8 MG/DL (8.5-10.4); CHLORIDE, SERUM 99 MMOL/L (96-112); CO2 (CARBON DIOXIDE) 31 MMOL/L (24-34); CREATININE 0.76 MG/DL (0.55-1.02); GFR AFRICAN AMERICAN 86 ML/MIN (>=60); GFR NON AFRICAN AMERICAN 75 ML/MIN (>=60); GLUCOSE, SERUM 99 MG/DL (60-99); PHOSPHORUS, SERUM 2.5 MG/DL (2.5-4.5); POTASSIUM, SERUM 3.9 MMOL/L (3.5-5.3); SODIUM, SERUM 135 MMOL/L (135-148)
[2017-01-26 04:46] LABS: BASOPHILS 0.1 %; BASOPHILS ABSOLUTE 0.01 10/3/uL (0.0-0.16); EOSINOPHILS 0.4 %; EOSINOPHILS ABSOLUTE 0.03 10/3/uL (0.0-0.53); HEMATOCRIT 36.3 % (36.0-48.0); HEMOGLOBIN 12.6 g/dL (12.0-16.0); IMMATURE GRANULOCYTES 0.1 %; IMMATURE GRANULOCYTES ABSOLUTE 0.01 10/3/uL (0.0-0.11); LYMPHOCYTES 11.5 %; LYMPHOCYTES ABSOLUTE 0.82 10/3/uL (0.67-4.30); MEAN CORPUS HGB CONC 34.7 g/dL (32.0-36.0); MEAN CORPUSCULAR HEMOGLOB 30.1 pg (26.0-34.0); MEAN CORPUSCULAR VOLUME 86.8 fL (80-100); MEAN PLATELET VOLUME 11.2 fL (9.2-13.0); MONOCYTES 7.7 %; MONOCYTES ABSOLUTE 0.55 10/3/uL (0.21-1.20); NEUTROPHILS 80.2 %; NEUTROPHILS ABSOLUTE 5.68 10/3/uL (2.02-8.40); PLATELET COUNT 159 10/3/uL (150-400); RBC DISTRIBUTION WIDTH 13.6 % (12.0-16.0); RED CELL COUNT 4.18 10/6/uL (4.0-5.6); WHITE BLOOD CELLS 7.1 10/3/uL (4.5-10.5)
[2017-01-26 04:47] LABS: MANUAL DIFF NO %
[2017-01-26 04:59] LABS: ALBUMIN 2.4 G/DL (3.5-5.0); BUN (BLOOD UREA NITROGEN) 7 MG/DL (6-23); CALCIUM, SERUM 8.4 MG/DL (8.5-10.4); CHLORIDE, SERUM 100 MMOL/L (96-112); CO2 (CARBON DIOXIDE) 30 MMOL/L (24-34); CREATININE 0.71 MG/DL (0.55-1.02); GFR AFRICAN AMERICAN 94 ML/MIN (>=60); GFR NON AFRICAN AMERICAN 81 ML/MIN (>=60); GLOBULIN 2.5 G/DL (2.5-4.1); POTASSIUM, SERUM 3.9 MMOL/L (3.5-5.3); SGOT(AST) 20 U/L (5-40); SGPT(ALT) 22 U/L (5-65); SODIUM, SERUM 135 MMOL/L (135-148); TOTAL BILIRUBIN 0.6 MG/DL (0-1.2); TOTAL PROTEIN 4.9 G/DL (6.0-8.5)
[2017-01-26 05:01] LABS: ALKALINE PHOSPHATASE 69 U/L (45-117); GLUCOSE, SERUM 154 MG/DL (60-99)
[2017-01-27 05:59] LABS: BASOPHILS 0.3 %; BASOPHILS ABSOLUTE 0.01 10/3/uL (0.0-0.16); EOSINOPHILS 0.5 %; EOSINOPHILS ABSOLUTE 0.02 10/3/uL (0.0-0.53); HEMATOCRIT 36.1 % (36.0-48.0); HEMOGLOBIN 12.2 g/dL (12.0-16.0); IMMATURE GRANULOCYTES 0.3 %; IMMATURE GRANULOCYTES ABSOLUTE 0.01 10/3/uL (0.0-0.11); LYMPHOCYTES 19.4 %; LYMPHOCYTES ABSOLUTE 0.76 10/3/uL (0.67-4.30); MEAN CORPUS HGB CONC 33.8 g/dL (32.0-36.0); MEAN CORPUSCULAR HEMOGLOB 29.5 pg (26.0-34.0); MEAN CORPUSCULAR VOLUME 87.2 fL (80-100); MEAN PLATELET VOLUME 10.2 fL (9.2-13.0); MONOCYTES 13.3 %; MONOCYTES ABSOLUTE 0.52 10/3/uL (0.21-1.20); NEUTROPHILS 66.2 %; NEUTROPHILS ABSOLUTE 2.59 10/3/uL (2.02-8.40); PLATELET COUNT 170 10/3/uL (150-400); RBC DISTRIBUTION WIDTH 13.8 % (12.0-16.0); RED CELL COUNT 4.14 10/6/uL (4.0-5.6)
[2017-01-27 06:00] LABS: MANUAL DIFF NO %; WHITE BLOOD CELLS 3.9 10/3/uL (4.5-10.5)
[2017-01-27 06:16] LABS: BUN (BLOOD UREA NITROGEN) 4 MG/DL (6-23); CALCIUM, SERUM 8.3 MG/DL (8.5-10.4); CHLORIDE, SERUM 101 MMOL/L (96-112); CO2 (CARBON DIOXIDE) 31 MMOL/L (24-34); GFR AFRICAN AMERICAN 81 ML/MIN (>=60); GFR NON AFRICAN AMERICAN 70 ML/MIN (>=60); GLUCOSE, SERUM 122 MG/DL (60-99); PHOSPHORUS, SERUM 1.8 MG/DL (2.5-4.5); POTASSIUM, SERUM 3.9 MMOL/L (3.5-5.3); SODIUM, SERUM 138 MMOL/L (135-148)
[2017-01-27 21:44] LABS: POTASSIUM, SERUM 4.2 MMOL/L (3.5-5.3)
[2017-01-27 21:45] LABS: PHOSPHORUS, SERUM 3.1 MG/DL (2.5-4.5)
[2017-01-28 05:09] LABS: BASOPHILS 0.3 %; BASOPHILS ABSOLUTE 0.01 10/3/uL (0.0-0.16); EOSINOPHILS 1.2 %; EOSINOPHILS ABSOLUTE 0.04 10/3/uL (0.0-0.53); HEMATOCRIT 33.7 % (36.0-48.0); HEMOGLOBIN 11.5 g/dL (12.0-16.0); MEAN CORPUS HGB CONC 34.1 g/dL (32.0-36.0); MEAN CORPUSCULAR HEMOGLOB 29.8 pg (26.0-34.0); MEAN CORPUSCULAR VOLUME 87.3 fL (80-100); MEAN PLATELET VOLUME 10.2 fL (9.2-13.0); MONOCYTES 16.2 %; MONOCYTES ABSOLUTE 0.54 10/3/uL (0.21-1.20); NEUTROPHILS 61.3 %; NEUTROPHILS ABSOLUTE 2.05 10/3/uL (2.02-8.40); PLATELET COUNT 177 10/3/uL (150-400); RBC DISTRIBUTION WIDTH 13.8 % (12.0-16.0); RED CELL COUNT 3.86 10/6/uL (4.0-5.6); WHITE BLOOD CELLS 3.3 10/3/uL (4.5-10.5)
[2017-01-28 05:10] LABS: MANUAL DIFF NO %
[2017-01-28 05:18] LABS: BUN (BLOOD UREA NITROGEN) 3 MG/DL (6-23); CALCIUM, SERUM 8.3 MG/DL (8.5-10.4); CHLORIDE, SERUM 101 MMOL/L (96-112); CO2 (CARBON DIOXIDE) 30 MMOL/L (24-34); CREATININE 0.76 MG/DL (0.55-1.02); GFR AFRICAN AMERICAN 86 ML/MIN (>=60); GFR NON AFRICAN AMERICAN 75 ML/MIN (>=60); GLUCOSE, SERUM 117 MG/DL (60-99); PHOSPHORUS, SERUM 2.9 MG/DL (2.5-4.5); SODIUM, SERUM 137 MMOL/L (135-148)
[2017-01-29 05:11] LABS: BASOPHILS 0 %; EOSINOPHILS 0.9 %; EOSINOPHILS ABSOLUTE 0.04 10/3/uL (0.0-0.53); HEMATOCRIT 35.4 % (36.0-48.0); HEMOGLOBIN 11.9 g/dL (12.0-16.0); IMMATURE GRANULOCYTES 0.7 %; IMMATURE GRANULOCYTES ABSOLUTE 0.03 10/3/uL (0.0-0.11); LYMPHOCYTES 17.4 %; LYMPHOCYTES ABSOLUTE 0.76 10/3/uL (0.67-4.30); MEAN CORPUS HGB CONC 33.6 g/dL (32.0-36.0); MEAN CORPUSCULAR HEMOGLOB 29.6 pg (26.0-34.0); MEAN CORPUSCULAR VOLUME 88.1 fL (80-100); MONOCYTES 14.7 %; MONOCYTES ABSOLUTE 0.64 10/3/uL (0.21-1.20); NEUTROPHILS 66.3 %; NEUTROPHILS ABSOLUTE 2.89 10/3/uL (2.02-8.40); PLATELET COUNT 203 10/3/uL (150-400); RBC DISTRIBUTION WIDTH 13.6 % (12.0-16.0); RED CELL COUNT 4.02 10/6/uL (4.0-5.6); WHITE BLOOD CELLS 4.4 10/3/uL (4.5-10.5)
[2017-01-29 05:14] LABS: MANUAL DIFF NO %
[2017-01-29 05:23] LABS: BUN (BLOOD UREA NITROGEN) 3 MG/DL (6-23); CALCIUM, SERUM 8.2 MG/DL (8.5-10.4); CHLORIDE, SERUM 103 MMOL/L (96-112); CO2 (CARBON DIOXIDE) 31 MMOL/L (24-34); CREATININE 0.65 MG/DL (0.55-1.02); GFR AFRICAN AMERICAN 98 ML/MIN (>=60); GFR NON AFRICAN AMERICAN 84 ML/MIN (>=60); GLUCOSE, SERUM 118 MG/DL (60-99); PHOSPHORUS, SERUM 2.8 MG/DL (2.5-4.5); POTASSIUM, SERUM 4.5 MMOL/L (3.5-5.3); SODIUM, SERUM 138 MMOL/L (135-148)
[2017-01-29 11:06] LABS: C-REACTIVE PROTEIN 88.9 MG/L (<8.0); CK-MB 0.9 NG/ML
[2017-01-29 11:23] LABS: ALBUMIN 2.3 G/DL (3.5-5.0); CPK 41 U/L (0-200); DIRECT BILIRUBIN 0.1 MG/DL (0.0-0.4); INDIRECT BILIRUBIN(NOT ORDER) 0.3 MG/DL (0.1-0.9); SGOT(AST) 17 U/L (5-40); SGPT(ALT) 30 U/L (5-65); TOTAL BILIRUBIN 0.4 MG/DL (0-1.2); TOTAL PROTEIN 5.1 G/DL (6.0-8.5)
[2017-01-29 11:25] LABS: ALKALINE PHOSPHATASE 95 U/L (45-117)
[2017-01-29 23:46] LABS: BASOPHILS 0.2 %; BASOPHILS ABSOLUTE 0.01 10/3/uL (0.0-0.16); EOSINOPHILS 0.4 %; EOSINOPHILS ABSOLUTE 0.02 10/3/uL (0.0-0.53); HEMOGLOBIN 13.6 g/dL (12.0-16.0); IMMATURE GRANULOCYTES 0.6 %; IMMATURE GRANULOCYTES ABSOLUTE 0.03 10/3/uL (0.0-0.11); LYMPHOCYTES 15.5 %; LYMPHOCYTES ABSOLUTE 0.81 10/3/uL (0.67-4.30); MEAN CORPUS HGB CONC 34.5 g/dL (32.0-36.0); MEAN CORPUSCULAR HEMOGLOB 30.4 pg (26.0-34.0); MEAN CORPUSCULAR VOLUME 88.1 fL (80-100); MEAN PLATELET VOLUME 9.5 fL (9.2-13.0); MONOCYTES 11.7 %; MONOCYTES ABSOLUTE 0.61 10/3/uL (0.21-1.20); NEUTROPHILS 71.6 %; NEUTROPHILS ABSOLUTE 3.74 10/3/uL (2.02-8.40); RBC DISTRIBUTION WIDTH 13.7 % (12.0-16.0); RED CELL COUNT 4.47 10/6/uL (4.0-5.6); WHITE BLOOD CELLS 5.2 10/3/uL (4.5-10.5)
[2017-01-29 23:48] LABS: HEMATOCRIT 39.4 % (36.0-48.0); MANUAL DIFF NO %; PLATELET COUNT 271 10/3/uL (150-400)
[2017-01-29 23:59] LABS: ALBUMIN 2.7 G/DL (3.5-5.0); BUN (BLOOD UREA NITROGEN) 4 MG/DL (6-23); CALCIUM, SERUM 8.6 MG/DL (8.5-10.4); CHLORIDE, SERUM 102 MMOL/L (96-112); CO2 (CARBON DIOXIDE) 32 MMOL/L (24-34); GFR AFRICAN AMERICAN 81 ML/MIN (>=60); GFR NON AFRICAN AMERICAN 70 ML/MIN (>=60); GLUCOSE, SERUM 120 MG/DL (60-99); POTASSIUM, SERUM 4.2 MMOL/L (3.5-5.3); SGOT(AST) 16 U/L (5-40); SGPT(ALT) 24 U/L (5-65); SODIUM, SERUM 138 MMOL/L (135-148); TOTAL BILIRUBIN 0.6 MG/DL (0-1.2); TOTAL PROTEIN 5.8 G/DL (6.0-8.5)
[2017-01-30 00:01] LABS: A/G RATIO 0.9 (0.7-1.9); ALKALINE PHOSPHATASE 109 U/L (45-117); GLOBULIN 3.1 G/DL (2.5-4.1)
[2017-01-30 06:04] LABS: BASOPHILS 0.2 %; BASOPHILS ABSOLUTE 0.01 10/3/uL (0.0-0.16); EOSINOPHILS 0.5 %; EOSINOPHILS ABSOLUTE 0.03 10/3/uL (0.0-0.53); HEMATOCRIT 38.7 % (36.0-48.0); IMMATURE GRANULOCYTES 0.4 %; IMMATURE GRANULOCYTES ABSOLUTE 0.02 10/3/uL (0.0-0.11); LYMPHOCYTES ABSOLUTE 0.66 10/3/uL (0.67-4.30); MEAN CORPUS HGB CONC 33.6 g/dL (32.0-36.0); MEAN CORPUSCULAR HEMOGLOB 29.6 pg (26.0-34.0); MEAN CORPUSCULAR VOLUME 88.2 fL (80-100); MEAN PLATELET VOLUME 9.9 fL (9.2-13.0); MONOCYTES 11.3 %; MONOCYTES ABSOLUTE 0.62 10/3/uL (0.21-1.20); NEUTROPHILS 75.6 %; NEUTROPHILS ABSOLUTE 4.17 10/3/uL (2.02-8.40); PLATELET COUNT 260 10/3/uL (150-400); RBC DISTRIBUTION WIDTH 13.7 % (12.0-16.0); RED CELL COUNT 4.39 10/6/uL (4.0-5.6); WHITE BLOOD CELLS 5.5 10/3/uL (4.5-10.5)
[2017-01-30 06:10] LABS: MANUAL DIFF NO %
[2017-01-30 06:24] LABS: PHOSPHORUS, SERUM 3.1 MG/DL (2.5-4.5)
[2017-01-31 06:50] LABS: BASOPHILS 0.2 %; BASOPHILS ABSOLUTE 0.01 10/3/uL (0.0-0.16); EOSINOPHILS 0.3 %; EOSINOPHILS ABSOLUTE 0.02 10/3/uL (0.0-0.53); HEMATOCRIT 37.4 % (36.0-48.0); HEMOGLOBIN 12.6 g/dL (12.0-16.0); IMMATURE GRANULOCYTES 0.3 %; IMMATURE GRANULOCYTES ABSOLUTE 0.02 10/3/uL (0.0-0.11); LYMPHOCYTES 13.3 %; LYMPHOCYTES ABSOLUTE 0.87 10/3/uL (0.67-4.30); MEAN CORPUS HGB CONC 33.7 g/dL (32.0-36.0); MEAN CORPUSCULAR HEMOGLOB 29.8 pg (26.0-34.0); MEAN CORPUSCULAR VOLUME 88.4 fL (80-100); MEAN PLATELET VOLUME 9.5 fL (9.2-13.0); MONOCYTES 8.4 %; MONOCYTES ABSOLUTE 0.55 10/3/uL (0.21-1.20); NEUTROPHILS 77.5 %; NEUTROPHILS ABSOLUTE 5.09 10/3/uL (2.02-8.40); PLATELET COUNT 299 10/3/uL (150-400); RBC DISTRIBUTION WIDTH 14.2 % (12.0-16.0); RED CELL COUNT 4.23 10/6/uL (4.0-5.6); WHITE BLOOD CELLS 6.6 10/3/uL (4.5-10.5)
[2017-01-31 06:56] LABS: MANUAL DIFF NO %
[2017-01-31 07:01] LABS: BUN (BLOOD UREA NITROGEN) 5 MG/DL (6-23); CALCIUM, SERUM 8.2 MG/DL (8.5-10.4); CHLORIDE, SERUM 103 MMOL/L (96-112); CO2 (CARBON DIOXIDE) 32 MMOL/L (24-34); CREATININE 0.83 MG/DL (0.55-1.02); GFR AFRICAN AMERICAN 78 ML/MIN (>=60); GFR NON AFRICAN AMERICAN 67 ML/MIN (>=60); GLUCOSE, SERUM 113 MG/DL (60-99); PHOSPHORUS, SERUM 3.3 MG/DL (2.5-4.5); POTASSIUM, SERUM 4.7 MMOL/L (3.5-5.3); SODIUM, SERUM 138 MMOL/L (135-148)
[2017-02-01 05:53] LABS: BASOPHILS 0.1 %; BASOPHILS ABSOLUTE 0.01 10/3/uL (0.0-0.16); EOSINOPHILS 0.5 %; EOSINOPHILS ABSOLUTE 0.04 10/3/uL (0.0-0.53); HEMATOCRIT 34.8 % (36.0-48.0); HEMOGLOBIN 11.8 g/dL (12.0-16.0); IMMATURE GRANULOCYTES 0.5 %; IMMATURE GRANULOCYTES ABSOLUTE 0.04 10/3/uL (0.0-0.11); LYMPHOCYTES 14.1 %; LYMPHOCYTES ABSOLUTE 1.08 10/3/uL (0.67-4.30); MEAN CORPUS HGB CONC 33.9 g/dL (32.0-36.0); MEAN CORPUSCULAR HEMOGLOB 29.5 pg (26.0-34.0); MEAN PLATELET VOLUME 9.3 fL (9.2-13.0); MONOCYTES 10.4 %; NEUTROPHILS 74.4 %; NEUTROPHILS ABSOLUTE 5.69 10/3/uL (2.02-8.40); PLATELET COUNT 289 10/3/uL (150-400); RBC DISTRIBUTION WIDTH 13.9 % (12.0-16.0); WHITE BLOOD CELLS 7.7 10/3/uL (4.5-10.5)
[2017-02-01 05:54] LABS: MANUAL DIFF NO %
[2017-02-01 06:14] LABS: A/G RATIO 0.8 (0.7-1.9); ALBUMIN 2.3 G/DL (3.5-5.0); ALKALINE PHOSPHATASE 98 U/L (45-117); BUN (BLOOD UREA NITROGEN) 4 MG/DL (6-23); CALCIUM, SERUM 8.2 MG/DL (8.5-10.4); CHLORIDE, SERUM 102 MMOL/L (96-112); CO2 (CARBON DIOXIDE) 29 MMOL/L (24-34); CREATININE 0.71 MG/DL (0.55-1.02); GFR AFRICAN AMERICAN 94 ML/MIN (>=60); GFR NON AFRICAN AMERICAN 81 ML/MIN (>=60); GLOBULIN 2.8 G/DL (2.5-4.1); GLUCOSE, SERUM 120 MG/DL (60-99); PHOSPHORUS, SERUM 3.2 MG/DL (2.5-4.5); POTASSIUM, SERUM 4.4 MMOL/L (3.5-5.3); SGOT(AST) 13 U/L (5-40); SGPT(ALT) 18 U/L (5-65); SODIUM, SERUM 137 MMOL/L (135-148); TOTAL BILIRUBIN 0.8 MG/DL (0-1.2); TOTAL PROTEIN 5.1 G/DL (6.0-8.5)
[2017-02-02 06:06] LABS: BUN (BLOOD UREA NITROGEN) 4 MG/DL (6-23); CALCIUM, SERUM 8.5 MG/DL (8.5-10.4); CHLORIDE, SERUM 105 MMOL/L (96-112); CO2 (CARBON DIOXIDE) 28 MMOL/L (24-34); CREATININE 0.69 MG/DL (0.55-1.02); GFR AFRICAN AMERICAN 96 ML/MIN (>=60); GFR NON AFRICAN AMERICAN 83 ML/MIN (>=60); GLUCOSE, SERUM 131 MG/DL (60-99); PHOSPHORUS, SERUM 3.3 MG/DL (2.5-4.5); POTASSIUM, SERUM 4.2 MMOL/L (3.5-5.3); SODIUM, SERUM 141 MMOL/L (135-148)
[2017-02-02 06:09] LABS: BASOPHILS 0.1 %; BASOPHILS ABSOLUTE 0.01 10/3/uL (0.0-0.16); EOSINOPHILS 0.6 %; EOSINOPHILS ABSOLUTE 0.05 10/3/uL (0.0-0.53); HEMATOCRIT 34.1 % (36.0-48.0); HEMOGLOBIN 11.6 g/dL (12.0-16.0); IMMATURE GRANULOCYTES 0.6 %; IMMATURE GRANULOCYTES ABSOLUTE 0.05 10/3/uL (0.0-0.11); LYMPHOCYTES 13.6 %; MEAN CORPUSCULAR HEMOGLOB 29.8 pg (26.0-34.0); MEAN CORPUSCULAR VOLUME 87.7 fL (80-100); MEAN PLATELET VOLUME 9.1 fL (9.2-13.0); MONOCYTES 8.3 %; MONOCYTES ABSOLUTE 0.67 10/3/uL (0.21-1.20); NEUTROPHILS 76.8 %; NEUTROPHILS ABSOLUTE 6.22 10/3/uL (2.02-8.40); PLATELET COUNT 312 10/3/uL (150-400); RBC DISTRIBUTION WIDTH 14.1 % (12.0-16.0); RED CELL COUNT 3.89 10/6/uL (4.0-5.6); WHITE BLOOD CELLS 8.1 10/3/uL (4.5-10.5)
[2017-02-02 06:10] LABS: MANUAL DIFF NO %
[2017-02-03 06:33] LABS: BASOPHILS 0.1 %; BASOPHILS ABSOLUTE 0.01 10/3/uL (0.0-0.16); EOSINOPHILS 0.8 %; EOSINOPHILS ABSOLUTE 0.06 10/3/uL (0.0-0.53); HEMATOCRIT 32.2 % (36.0-48.0); HEMOGLOBIN 11.1 g/dL (12.0-16.0); IMMATURE GRANULOCYTES 0.4 %; IMMATURE GRANULOCYTES ABSOLUTE 0.03 10/3/uL (0.0-0.11); LYMPHOCYTES 14.2 %; LYMPHOCYTES ABSOLUTE 1.13 10/3/uL (0.67-4.30); MANUAL DIFF NO %; MEAN CORPUS HGB CONC 34.5 g/dL (32.0-36.0); MEAN CORPUSCULAR HEMOGLOB 29.4 pg (26.0-34.0); MEAN CORPUSCULAR VOLUME 85.4 fL (80-100); MEAN PLATELET VOLUME 8.7 fL (9.2-13.0); MONOCYTES ABSOLUTE 0.64 10/3/uL (0.21-1.20); NEUTROPHILS 76.5 %; PLATELET COUNT 311 10/3/uL (150-400); RBC DISTRIBUTION WIDTH 14.1 % (12.0-16.0); RED CELL COUNT 3.77 10/6/uL (4.0-5.6)
[2017-02-03 06:50] LABS: A/G RATIO 0.9 (0.7-1.9); ALBUMIN 2.4 G/DL (3.5-5.0); ALKALINE PHOSPHATASE 96 U/L (45-117); BUN (BLOOD UREA NITROGEN) 2 MG/DL (6-23); CALCIUM, SERUM 8.2 MG/DL (8.5-10.4); CHLORIDE, SERUM 106 MMOL/L (96-112); CO2 (CARBON DIOXIDE) 27 MMOL/L (24-34); CREATININE 0.61 MG/DL (0.55-1.02); GFR AFRICAN AMERICAN 100 ML/MIN (>=60); GFR NON AFRICAN AMERICAN 86 ML/MIN (>=60); GLOBULIN 2.6 G/DL (2.5-4.1); GLUCOSE, SERUM 106 MG/DL (60-99); PHOSPHORUS, SERUM 2.3 MG/DL (2.5-4.5); POTASSIUM, SERUM 4.2 MMOL/L (3.5-5.3); SGOT(AST) 12 U/L (5-40); SGPT(ALT) 16 U/L (5-65); SODIUM, SERUM 140 MMOL/L (135-148); TOTAL BILIRUBIN 0.6 MG/DL (0-1.2)
[2017-02-04 04:44] LABS: BASOPHILS 0.4 %; BASOPHILS ABSOLUTE 0.02 10/3/uL (0.0-0.16); EOSINOPHILS 0.6 %; EOSINOPHILS ABSOLUTE 0.03 10/3/uL (0.0-0.53); HEMATOCRIT 34.2 % (36.0-48.0); HEMOGLOBIN 11.7 g/dL (12.0-16.0); IMMATURE GRANULOCYTES 0.4 %; IMMATURE GRANULOCYTES ABSOLUTE 0.02 10/3/uL (0.0-0.11); LYMPHOCYTES 19.1 %; LYMPHOCYTES ABSOLUTE 0.96 10/3/uL (0.67-4.30); MANUAL DIFF NO %; MEAN CORPUS HGB CONC 34.2 g/dL (32.0-36.0); MEAN CORPUSCULAR VOLUME 87.7 fL (80-100); MEAN PLATELET VOLUME 8.7 fL (9.2-13.0); MONOCYTES 9.5 %; MONOCYTES ABSOLUTE 0.48 10/3/uL (0.21-1.20); NEUTROPHILS ABSOLUTE 3.52 10/3/uL (2.02-8.40); PLATELET COUNT 315 10/3/uL (150-400)
[2017-02-04 04:57] LABS: A/G RATIO 0.9 (0.7-1.9); ALBUMIN 2.3 G/DL (3.5-5.0); ALKALINE PHOSPHATASE 97 U/L (45-117); BUN (BLOOD UREA NITROGEN) 2 MG/DL (6-23); CALCIUM, SERUM 8.2 MG/DL (8.5-10.4); CHLORIDE, SERUM 110 MMOL/L (96-112); CO2 (CARBON DIOXIDE) 26 MMOL/L (24-34); CREATININE 0.59 MG/DL (0.55-1.02); GFR AFRICAN AMERICAN 101 ML/MIN (>=60); GFR NON AFRICAN AMERICAN 87 ML/MIN (>=60); GLOBULIN 2.6 G/DL (2.5-4.1); GLUCOSE, SERUM 113 MG/DL (60-99); POTASSIUM, SERUM 4.3 MMOL/L (3.5-5.3); SGOT(AST) 14 U/L (5-40); SGPT(ALT) 16 U/L (5-65); SODIUM, SERUM 143 MMOL/L (135-148); TOTAL BILIRUBIN 0.6 MG/DL (0-1.2); TOTAL PROTEIN 4.9 G/DL (6.0-8.5)
[2017-02-05 05:20] LABS: BASOPHILS 0.2 %; BASOPHILS ABSOLUTE 0.01 10/3/uL (0.0-0.16); EOSINOPHILS 0.5 %; EOSINOPHILS ABSOLUTE 0.03 10/3/uL (0.0-0.53); HEMATOCRIT 37.3 % (36.0-48.0); HEMOGLOBIN 12.5 g/dL (12.0-16.0); IMMATURE GRANULOCYTES 0.7 %; IMMATURE GRANULOCYTES ABSOLUTE 0.04 10/3/uL (0.0-0.11); LYMPHOCYTES 16.2 %; LYMPHOCYTES ABSOLUTE 0.93 10/3/uL (0.67-4.30); MEAN CORPUS HGB CONC 33.5 g/dL (32.0-36.0); MEAN CORPUSCULAR HEMOGLOB 29.6 pg (26.0-34.0); MEAN CORPUSCULAR VOLUME 88.2 fL (80-100); MEAN PLATELET VOLUME 9.1 fL (9.2-13.0); MONOCYTES 8.6 %; MONOCYTES ABSOLUTE 0.49 10/3/uL (0.21-1.20); NEUTROPHILS 73.8 %; NEUTROPHILS ABSOLUTE 4.23 10/3/uL (2.02-8.40); PLATELET COUNT 348 10/3/uL (150-400); RBC DISTRIBUTION WIDTH 14.4 % (12.0-16.0); RED CELL COUNT 4.23 10/6/uL (4.0-5.6); WHITE BLOOD CELLS 5.7 10/3/uL (4.5-10.5)
[2017-02-05 05:21] LABS: MANUAL DIFF NO %
[2017-02-05 05:33] LABS: A/G RATIO 0.9 (0.7-1.9); ALBUMIN 2.3 G/DL (3.5-5.0); ALKALINE PHOSPHATASE 98 U/L (45-117); BUN (BLOOD UREA NITROGEN) 3 MG/DL (6-23); CALCIUM, SERUM 7.9 MG/DL (8.5-10.4); CHLORIDE, SERUM 108 MMOL/L (96-112); CO2 (CARBON DIOXIDE) 25 MMOL/L (24-34); CREATININE 0.66 MG/DL (0.55-1.02); GFR AFRICAN AMERICAN 97 ML/MIN (>=60); GFR NON AFRICAN AMERICAN 84 ML/MIN (>=60); GLOBULIN 2.5 G/DL (2.5-4.1); GLUCOSE, SERUM 122 MG/DL (60-99); PHOSPHORUS, SERUM 2.4 MG/DL (2.5-4.5); POTASSIUM, SERUM 4.6 MMOL/L (3.5-5.3); SGOT(AST) 15 U/L (5-40); SGPT(ALT) 17 U/L (5-65); SODIUM, SERUM 139 MMOL/L (135-148); TOTAL BILIRUBIN 0.4 MG/DL (0-1.2); TOTAL PROTEIN 4.8 G/DL (6.0-8.5)
[2017-02-06 09:30] LABS: BASOPHILS 0.2 %; BASOPHILS ABSOLUTE 0.01 10/3/uL (0.0-0.16); EOSINOPHILS 0.5 %; EOSINOPHILS ABSOLUTE 0.03 10/3/uL (0.0-0.53); HEMATOCRIT 40.3 % (36.0-48.0); HEMOGLOBIN 13.6 g/dL (12.0-16.0); IMMATURE GRANULOCYTES 0.3 %; IMMATURE GRANULOCYTES ABSOLUTE 0.02 10/3/uL (0.0-0.11); LYMPHOCYTES 19.4 %; LYMPHOCYTES ABSOLUTE 1.24 10/3/uL (0.67-4.30); MEAN CORPUS HGB CONC 33.7 g/dL (32.0-36.0); MEAN CORPUSCULAR HEMOGLOB 29.7 pg (26.0-34.0); MEAN PLATELET VOLUME 8.8 fL (9.2-13.0); MONOCYTES 8.5 %; MONOCYTES ABSOLUTE 0.54 10/3/uL (0.21-1.20); NEUTROPHILS 71.1 %; NEUTROPHILS ABSOLUTE 4.55 10/3/uL (2.02-8.40); PLATELET COUNT 383 10/3/uL (150-400); RBC DISTRIBUTION WIDTH 14.6 % (12.0-16.0); RED CELL COUNT 4.58 10/6/uL (4.0-5.6); WHITE BLOOD CELLS 6.4 10/3/uL (4.5-10.5)
[2017-02-06 09:34] LABS: MANUAL DIFF NO %
[2017-02-06 09:47] LABS: ALBUMIN 2.7 G/DL (3.5-5.0); BUN (BLOOD UREA NITROGEN) 5 MG/DL (6-23); CALCIUM, SERUM 8.3 MG/DL (8.5-10.4); CHLORIDE, SERUM 107 MMOL/L (96-112); CO2 (CARBON DIOXIDE) 22 MMOL/L (24-34); CREATININE 0.79 MG/DL (0.55-1.02); GFR AFRICAN AMERICAN 83 ML/MIN (>=60); GFR NON AFRICAN AMERICAN 71 ML/MIN (>=60); GLOBULIN 2.7 G/DL (2.5-4.1); GLUCOSE, SERUM 138 MG/DL (60-99); POTASSIUM, SERUM 4.8 MMOL/L (3.5-5.3); SGOT(AST) 15 U/L (5-40); SGPT(ALT) 16 U/L (5-65); SODIUM, SERUM 138 MMOL/L (135-148); TOTAL BILIRUBIN 0.5 MG/DL (0-1.2); TOTAL PROTEIN 5.4 G/DL (6.0-8.5)
[2017-02-06 09:48] LABS: ALKALINE PHOSPHATASE 110 U/L (45-117)
[2017-02-08 18:25] LABS: BASOPHILS 0.1 %; BASOPHILS ABSOLUTE 0.01 10/3/uL (0.0-0.16); EOSINOPHILS 0.2 %; EOSINOPHILS ABSOLUTE 0.02 10/3/uL (0.0-0.53); HEMOGLOBIN 15.2 g/dL (12.0-16.0); IMMATURE GRANULOCYTES 0.3 %; IMMATURE GRANULOCYTES ABSOLUTE 0.03 10/3/uL (0.0-0.11); LYMPHOCYTES 14.8 %; LYMPHOCYTES ABSOLUTE 1.46 10/3/uL (0.67-4.30); MEAN CORPUS HGB CONC 34.1 g/dL (32.0-36.0); MEAN CORPUSCULAR HEMOGLOB 29.7 pg (26.0-34.0); MEAN CORPUSCULAR VOLUME 87.3 fL (80-100); MEAN PLATELET VOLUME 8.9 fL (9.2-13.0); MONOCYTES 5.8 %; MONOCYTES ABSOLUTE 0.57 10/3/uL (0.21-1.20); NEUTROPHILS 78.8 %; NEUTROPHILS ABSOLUTE 7.75 10/3/uL (2.02-8.40); PLATELET COUNT 437 10/3/uL (150-400); RBC DISTRIBUTION WIDTH 14.6 % (12.0-16.0); RED CELL COUNT 5.11 10/6/uL (4.0-5.6)
[2017-02-08 18:26] LABS: HEMATOCRIT 44.6 % (36.0-48.0); MANUAL DIFF NO %; WHITE BLOOD CELLS 9.8 10/3/uL (4.5-10.5)
[2017-02-08 18:55] LABS: CALCIUM, SERUM 8.8 MG/DL (8.5-10.4); CHLORIDE, SERUM 102 MMOL/L (96-112); CO2 (CARBON DIOXIDE) 25 MMOL/L (24-34); CREATININE 1.11 MG/DL (0.55-1.02); GFR AFRICAN AMERICAN 55 ML/MIN (>=60); GFR NON AFRICAN AMERICAN 47 ML/MIN (>=60); POTASSIUM, SERUM 5.2 MMOL/L (3.5-5.3); SGOT(AST) 15 U/L (5-40); SGPT(ALT) 21 U/L (5-65); SODIUM, SERUM 136 MMOL/L (135-148); TOTAL BILIRUBIN 0.8 MG/DL (0-1.2); TOTAL PROTEIN 6.3 G/DL (6.0-8.5)
[2017-02-08 18:58] LABS: A/G RATIO 1.1 (0.7-1.9); ALBUMIN 3.3 G/DL (3.5-5.0); ALKALINE PHOSPHATASE 125 U/L (45-117); BUN (BLOOD UREA NITROGEN) 19 MG/DL (6-23); GLUCOSE, SERUM 99 MG/DL (60-99); PHOSPHORUS, SERUM 3.2 MG/DL (2.5-4.5)
[2017-02-08 19:31] LABS: CK-MB 1.7 NG/ML; CPK 54 U/L (0-200); TROPONIN I <0.02 NG/ML (<0.05)
[2017-02-09 06:39] LABS: BASOPHILS 0.1 %; BASOPHILS ABSOLUTE 0.01 10/3/uL (0.0-0.16); EOSINOPHILS 0.4 %; EOSINOPHILS ABSOLUTE 0.03 10/3/uL (0.0-0.53); HEMOGLOBIN 12.8 g/dL (12.0-16.0); IMMATURE GRANULOCYTES 0.4 %; IMMATURE GRANULOCYTES ABSOLUTE 0.03 10/3/uL (0.0-0.11); LYMPHOCYTES 20.1 %; LYMPHOCYTES ABSOLUTE 1.56 10/3/uL (0.67-4.30); MEAN CORPUS HGB CONC 33.8 g/dL (32.0-36.0); MEAN CORPUSCULAR HEMOGLOB 29.6 pg (26.0-34.0); MEAN CORPUSCULAR VOLUME 87.7 fL (80-100); MEAN PLATELET VOLUME 9.5 fL (9.2-13.0); MONOCYTES 8.2 %; MONOCYTES ABSOLUTE 0.64 10/3/uL (0.21-1.20); NEUTROPHILS 70.8 %; NEUTROPHILS ABSOLUTE 5.49 10/3/uL (2.02-8.40); PLATELET COUNT 396 10/3/uL (150-400); RBC DISTRIBUTION WIDTH 14.6 % (12.0-16.0); RED CELL COUNT 4.32 10/6/uL (4.0-5.6); WHITE BLOOD CELLS 7.8 10/3/uL (4.5-10.5)
[2017-02-09 06:48] LABS: HEMATOCRIT 37.9 % (36.0-48.0); MANUAL DIFF NO %
[2017-02-09 06:51] LABS: BUN (BLOOD UREA NITROGEN) 19 MG/DL (6-23); CHLORIDE, SERUM 104 MMOL/L (96-112); CO2 (CARBON DIOXIDE) 24 MMOL/L (24-34); CREATININE 0.83 MG/DL (0.55-1.02); GFR AFRICAN AMERICAN 78 ML/MIN (>=60); GFR NON AFRICAN AMERICAN 67 ML/MIN (>=60); POTASSIUM, SERUM 4.6 MMOL/L (3.5-5.3); SODIUM, SERUM 137 MMOL/L (135-148)
[2017-02-09 06:54] LABS: GLUCOSE, SERUM 70 MG/DL (60-99)
[2017-02-10 06:34] LABS: BASOPHILS 0.2 %; BASOPHILS ABSOLUTE 0.01 10/3/uL (0.0-0.16); EOSINOPHILS 0.2 %; EOSINOPHILS ABSOLUTE 0.01 10/3/uL (0.0-0.53); HEMOGLOBIN 10.6 g/dL (12.0-16.0); IMMATURE GRANULOCYTES 0.2 %; IMMATURE GRANULOCYTES ABSOLUTE 0.01 10/3/uL (0.0-0.11); LYMPHOCYTES 18.9 %; LYMPHOCYTES ABSOLUTE 1.03 10/3/uL (0.67-4.30); MEAN CORPUS HGB CONC 34.1 g/dL (32.0-36.0); MEAN CORPUSCULAR VOLUME 88.1 fL (80-100); MEAN PLATELET VOLUME 8.9 fL (9.2-13.0); MONOCYTES 6.8 %; MONOCYTES ABSOLUTE 0.37 10/3/uL (0.21-1.20); NEUTROPHILS 73.7 %; NEUTROPHILS ABSOLUTE 4.02 10/3/uL (2.02-8.40); PLATELET COUNT 301 10/3/uL (150-400); RBC DISTRIBUTION WIDTH 14.5 % (12.0-16.0); RED CELL COUNT 3.53 10/6/uL (4.0-5.6); WHITE BLOOD CELLS 5.5 10/3/uL (4.5-10.5)
[2017-02-10 06:35] LABS: HEMATOCRIT 31.1 % (36.0-48.0); MANUAL DIFF NO %
[2017-02-10 06:40] LABS: BUN (BLOOD UREA NITROGEN) 12 MG/DL (6-23); CALCIUM, SERUM 7.5 MG/DL (8.5-10.4); CHLORIDE, SERUM 105 MMOL/L (96-112); CO2 (CARBON DIOXIDE) 21 MMOL/L (24-34); CREATININE 0.72 MG/DL (0.55-1.02); GFR AFRICAN AMERICAN 92 ML/MIN (>=60); GFR NON AFRICAN AMERICAN 80 ML/MIN (>=60); GLUCOSE, SERUM 62 MG/DL (60-99); POTASSIUM, SERUM 4.1 MMOL/L (3.5-5.3); SODIUM, SERUM 139 MMOL/L (135-148)
[2017-02-10 12:55] LABS: A/G RATIO 1.1 (0.7-1.9); ALBUMIN 2.8 G/DL (3.5-5.0); BUN (BLOOD UREA NITROGEN) 10 MG/DL (6-23); CALCIUM, SERUM 8.2 MG/DL (8.5-10.4); CO2 (CARBON DIOXIDE) 22 MMOL/L (24-34); GLOBULIN 2.5 G/DL (2.5-4.1); GLUCOSE, SERUM 59 MG/DL (60-99); TOTAL BILIRUBIN 0.6 MG/DL (0-1.2); TOTAL PROTEIN 5.3 G/DL (6.0-8.5)
[2017-02-10 13:00] LABS: ALKALINE PHOSPHATASE 90 U/L (45-117)
[2017-02-10 13:15] LABS: CHLORIDE, SERUM 102 MMOL/L (96-112); CREATININE 0.85 MG/DL (0.55-1.02); GFR AFRICAN AMERICAN 76 ML/MIN (>=60); GFR NON AFRICAN AMERICAN 65 ML/MIN (>=60); POTASSIUM, SERUM 3.9 MMOL/L (3.5-5.3); PREALBUMIN 10.8 MG/DL (17.0-43.0); SGOT(AST) 25 U/L (5-40); SGPT(ALT) 16 U/L (5-65); SODIUM, SERUM 137 MMOL/L (135-148)
[2017-02-11] MEDS ORDERED: PROTONIX PO (15:07)
[2017-02-11] MEDS ORDERED: ZOFRAN ODT4 MG PO (15:08)
[2017-02-11] MEDS ORDERED: PCET PO (15:09)
[2017-05-26] MEDS ORDERED: GLUCOSAMINEPO PO (18:01)
[2017-05-26] MEDS ORDERED: MAGNESIUM PO ×2 (18:02)
[2017-05-26] MEDS ORDERED: [UNRECOGNIZED DRUG - OTHER] PO ×2 (18:02)
[2017-05-26] MEDS ORDERED: [UNRECOGNIZED DRUG - OTHER] PO (18:02)
[2017-05-26] MEDS ORDERED: SYN125 PO (18:03)
[2017-05-26] MEDS ORDERED: NEUR100 PO (18:03)
[2017-05-26] MEDS ORDERED: FISH OIL LIQUID PO (18:03)
[2017-05-26] MEDS ORDERED: VITE PO (18:03)
[2017-05-26] MEDS ORDERED: KLOR-CON 1010 MEQ PO (18:04)
[2017-05-26] MEDS ORDERED: ASAB PO (18:04)
[2017-05-26] MEDS ORDERED: BIST PO (18:04)
[2017-05-31] MEDS ORDERED: PCET PO (17:52)
[2017-05-31] MEDS ORDERED: MIRALAX POWDER1 PKT PO (17:58)
[2017-05-31] MEDS ORDERED: ACETUDL PO (17:59)
== END 2017-02-11 16:49 | disposition home or self-care (01) | DRG 336 ==
LOC: 6NO 17:34
PROVIDERS: Hospitalist; Internal Medicine; Nurse Practitioner Family; Specialist; Surgery
PROC: 0DJ08ZZ Inspection of Upper Intestinal Tract, Via Natural or Artificial Opening Endoscopic (ICD-10-PCS; 2017-01-19)
PROC: 0DN80ZZ Release Small Intestine, Open Approach (ICD-10-PCS; principal; 2017-01-23 12:45)
PROC: 0FT40ZZ Resection of Gallbladder, Open Approach (ICD-10-PCS; 2017-01-23 12:45)
DX: K56.5 Intestinal adhesions [bands] with obstruction (postinfection) (principal); I48.3 Typical atrial flutter; I47.2 Ventricular tachycardia; E44.0 Moderate protein-calorie malnutrition; K92.2 Gastrointestinal hemorrhage, unspecified; I72.8 Aneurysm of other specified arteries; I48.0 Paroxysmal atrial fibrillation; I48.2 Chronic atrial fibrillation; I47.1 Supraventricular tachycardia; I08.3 Combined rheumatic disorders of mitral, aortic and tricuspid valves; Z68.1 Body mass index [BMI] 19.9 or less, adult; K80.80 Other cholelithiasis without obstruction; K56.7 Ileus, unspecified; E03.9 Hypothyroidism, unspecified; K58.9 Irritable bowel syndrome, unspecified; R07.0 Pain in throat; I49.3 Ventricular premature depolarization; R00.1 Bradycardia, unspecified; T46.2X5A Adverse effect of other antidysrhythmic drugs, initial encounter; R91.8 Other nonspecific abnormal finding of lung field; Z87.442 Personal history of urinary calculi
CPT/HCPCS: 71010; 74000; 74020; 74177; 74245; 76705; 80048; 80053; 80076; 82330; 82550; 82553; 83605; 83690; 83735; 84100; 84132; 84134; 84439; 84443; 84484; 85025; 85610; 86140; 88304; 93005; 93975; A9270-GY; C9113; J0282; J0690; J1170; J2405; J2550; J2710; J2795; J3010; J3475; J3480; Q9967

== ENCOUNTER 2017-02-12 10:33 | Inpatient (IN) | payer MEDICARE ==
--- NOTE | ~2017-02-12 | HP ---
History And Physical [address] [address] NAME: ALEX THOMPSON : 37 STATUS : ADM IN [facility]#: [id number] AGE: 81 ADM/REG DATE : 02/12/17 MR#: [id number] REPORT SERV DATE: 02/12/17 DICTATED BY: JESÚS SALAZAR DATE: 02/12/17 REPORT STATUS : Draft TRANSCRIBED BY: MODL DATE: 02/12/17 DATE OF ADMISSION: 02/12/2017 CHIEF COMPLAINT: This is a 81-year-old white female, triaged in the emergency room on 02/12/2017 at 1033 hours with a chief complaint of weakness. In the emergency room, admission vital signs, blood pressure was 76/50, pulse 155, respirations 16, O2 sat 94%. On evaluation in the emergency room, she was found to be in atrial flutter with rapid ventricular response. After initial stabilization treatment, the Hospitalist Service was contacted for admission. She is now seen by the undersigned and admitted. The history is obtained from the ER physician, Dr. Jeter; the patient; the patient's daughter, who is present; and review of medical records on [facility] [facility]. HISTORY OF PRESENT ILLNESS: Ms. Thompson was in this hospital 01/17/2017 to 02/11/2017. She was discharged by the undersigned yesterday with diagnoses of: 1. Recurrent partial bowel obstruction, postop exploratory laparotomy, lysis of adhesions, enterorrhaphy x2, and cholecystectomy on 01/23/2017 for cholecystitis and abdominal pain with small-bowel obstruction. 2. Prolonged ileus. 3. Intermittent small-volume upper gastrointestinal bleeding with continuous NG tube suction. 4. Paroxysmal atrial flutter with remote history of ablation, possible atypical flutter, not on anticoagulation per the patient's choice. Treated intermittently during hospitalization with amiodarone, but discontinued because of bradycardia. Discharged in sinus rhythm. Previous intolerance to sotalol because of hypotension. 5. Tricuspid and aortic regurgitation by echocardiography. 6. Nonpersistent, nonsustained ventricular tachycardia on telemetry monitoring while hospitalized. 7. Splenic artery aneurysms by CT, less than 2 cm. 8. Left upper quadrant and left back pain, chronic, intermittent, uncertain etiology. 9. History of renal stones. 10.Glaucoma postsurgery. 11.Multiple bilateral pulmonary nodules, status post bronchoscopy, navigational bronchoscopy, and endobronchial ultrasound on 10/28/2016 with negative histology for malignancy. 12.Hypothyroid with mildly elevated TSH on admission, higher TSH during hospitalization, thought to be from impaired Synthroid absorption. 13.Weight loss. 14.Multiple electrolyte abnormalities during hospitalization, treated. 15.Diffuse myalgias and arthralgias associated with postoperative complications, resolved. 16.Severe sore throat and ear pain secondary to prolonged nasogastric tube use, resolved. During her hospitalization from an atrial flutter perspective, she was seen by [facility] EP and Interventional Cardiology, Dr. Black and Dr. Pollard. It was felt that she would need an ablation. However, in view of her prolonged GI convalescence, it was felt best to postpone this, particularly in view of her paroxysmal disease and sinus rhythm at discharge. Of note was that she had not taken anticoagulation as an outpatient and she did not want to continue History And Physical [address] [address] NAME: ALEX THOMPSON : 37 STATUS : ADM IN [facility]#: [id number] AGE: 81 ADM/REG DATE : 02/12/17 MR#: [id number] REPORT SERV DATE: 02/12/17 DICTATED BY: JESÚS SALAZAR DATE: 02/12/17 REPORT STATUS : Draft TRANSCRIBED BY: LAURA DATE: 02/12/17 anticoagulation at discharge. At home yesterday, she felt well. She was able to eat without nausea, vomiting, bloating, or abdominal pain. She went to bed feeling well. She was up at least twice during the night to void. She did not have any dizziness, chest pain, shortness of breath, or GI symptoms. This morning, she got up. She voided and defecated. She then began walking into another room. She developed dizziness, weakness, and near syncope. She sat down. She began to have her left upper quadrant and back pain. Her daughter gave her a Percocet. She ate some oatmeal. Her symptoms improved, but did not completely resolve. She tried to walk down some stairs. She felt worse. EMS was called, and she was brought to the emergency room. In the emergency room, an EKG showed atrial flutter with 2:1 AV conduction. She was given a liter of saline. She reverted to sinus rhythm with PVCs as she had done during her recent hospitalization. She has not felt tachypalpitations with these episodes nor has she had chest pain, shortness of breath, nausea, or any focal neurologic symptoms. She did have some headache. PAST MEDICAL HISTORY: See above. PAST SURGICAL HISTORY: See above and also appendectomy, thyroidectomy, and two previous abdominal surgeries for small-bowel obstruction. FAMILY HISTORY: Negative for pacemakers, defibrillators, arrhythmia history. SOCIAL HISTORY: She is . No tobacco or alcohol use. 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 ALLERGIES OR INTOLERANCE: None. HOME MEDICATIONS: Glucosamine 1500 mg daily, Synthroid 125 mcg daily, multivitamin twice daily, Percocet q.4 hours p.r.n. 5/325, Protonix 40 mg twice daily, vitamin E 400 units daily, fish oil 30 mL daily, vitamin C one tablet daily. REVIEW OF SYSTEMS: Complete, done with the patient in ED and negative, except as noted above. PHYSICAL EXAMINATION: Done in ER2 of the emergency room. VITAL SIGNS: Admission vital signs, see above. During exam at 1302 hours, blood pressure 104/59, pulse 66 with PVCs. GENERAL: This is a stated age appearing, weak, frail white female, who is conversant and appropriate. SKIN: Warm, dry, and pale. No rash, petechiae, or ecchymoses. History And Physical [address] [address] NAME: ALEX THOMPSON : 37 STATUS : ADM IN [facility]#: [id number] AGE: 81 ADM/REG DATE : 02/12/17 MR#: [id number] REPORT SERV DATE: 02/12/17 DICTATED BY: JESÚS SALAZAR DATE: 02/12/17 REPORT STATUS : Draft TRANSCRIBED BY: MODL DATE: 02/12/17 NODES: No palpable axillary, cervical, or inguinal. HEENT: Atraumatic with symmetric facies. There was some temporal wasting. Lids, sclerae, conjunctivae negative. No xanthelasma, scleral icterus, or conjunctival petechiae or injection. Pupils unequal post cataract surgery with left eye greater than right eye in size. Extraocular movements intact. No nystagmus. Hearing intact. External ears negative. Ear canals and TMs normal. Nose negative. Anterior nares without exudate. Nasal O2 in place. Lips, gums, hard and soft palates, posterior pharynx, tongue, and mucosa negative. NECK: No visible JVD or asymmetry. No palpable mass, goiter, or tenderness. LUNGS: Clear to auscultation. Normal respiratory effort. HEART: Regular rhythm with extrasystoles. 2/6 systolic murmur without diastolic murmur, click, rub, or S3 gallop. Pulses 2+ radial, carotid, femoral and cannot feel dorsalis pedis or posterior tibial at this time. ABDOMEN: Slightly protuberant. Bowel sounds present. Soft to palpation with some upper abdominal tenderness. Cannot feel liver, spleen, kidneys, or aortic pulsation. EXTREMITIES: Upper and lower extremities with diminished muscle and fat mass. No cyanosis, clubbing, or edema. NEUROLOGIC: Mental status normal. Cranial nerves 2 through 12 normal. Deep tendon reflexes symmetric, 1+ brachioradialis and triceps. Absent knee jerk and ankle jerk. Sensory intact to touch and temperature. Motor, moves all extremities symmetrically and equally. PSYCHIATRIC: Flat affect. Depressed mood. DATA: EKG, see above. Sodium 139, potassium 3.8, chloride 102, CO2 of 25, BUN 5, creatinine 0.8, glucose 117, calcium 8.6, magnesium 1.7. TSH is 7.78, having been 22.2 on 02/08. Troponin is less than 0.02. Lactate is 1.5. Cortisol pending. White count 5.7, hemoglobin 14.1, platelets 224,000. PTT 29.7, PT 14. ASSESSMENT: This is a 81-year-old white female with: 1. Paroxysmal atrial flutter with rapid ventricular response. 2. Hypotension with near syncope associated with paroxysmal atrial flutter. 3. Chronic left upper quadrant and back pain, uncertain etiology. 4. Sotalol intolerance because of hypotension. 5. Amiodarone intolerance because of bradycardia. 6. Tricuspid and mitral regurgitation per previous echocardiography. 7. Nonpersistent, nonsustained ventricular tachycardia during previous hospitalization with premature ventricular contractions in ED. 8. Splenic artery aneurysms. 9. Recent hospitalization with recurrent small-bowel obstruction and history of same as described. 10.Pulmonary nodules with negative biopsy in 10/2016. 11.Hypothyroid. 12.Glaucoma postsurgery. 13.Declined long-term anticoagulation. 14.Per previous discharge summary. PLAN: Admit to [address] [place] [address]. Continue crystalloid volume resuscitation. Recheck CBC this History And Physical [address] [place]. [address] NAME: ALEX THOMPSON : 39 STATUS : ADM IN [facility]#: [id number] AGE: 81 ADM/REG DATE : 02/12/17 MR#: [id number] REPORT SERV DATE: 02/12/17 DICTATED BY: JESÚS SALAZAR DATE: 02/12/17 REPORT STATUS : Draft TRANSCRIBED BY: MODL DATE: 02/12/17 afternoon or current presentation and documented splenic artery aneurysms and risk for rupture and bleeding. Repeat echocardiogram. Ask EP to see regarding potential for ablation, pacemaker therapy and whether other EP studies need to be done. Continue current meds. Six small feedings per day. Follow up data. Further diagnostic and therapeutic recommendations pending above. DD/MODL Jesús Salazar M.D. / [id number] CC: Julisa Barajas M.D.
--- NOTE | ~2017-02-12 | DS ---
Discharge Summary [facility] [address] [facility] [place]. [address] NAME: ALEX THOMPSON : 39 STATUS : DIS IN PAT#: [id number] AGE: 81 ADM/REG DATE : 02/12/17 MR#: [id number] REPORT SERV DATE: 02/16/17 DICTATED BY: DAVID BLAIR DATE: 02/16/17 REPORT STATUS : Draft TRANSCRIBED BY: MODL DATE: 02/16/17 ADMISSION DATE: 02/12/2017 DISCHARGE DATE: 02/16/2017 DISCHARGE DIAGNOSES: 1. Paroxysmal atrial flutter with rapid ventricular response as well as hypotension and near syncopal episode, responsive to Tikosyn therapy. 2. Chronic left upper quadrant back pain and abdominal pains of uncertain etiology. 3. Tricuspid and mitral regurgitation. 4. Splenic artery aneurysms. 5. Recent hospitalization for recurrent small bowel obstruction and ileus. 6. Pulmonary nodules with negative biopsy from 10/2016. 7. Hypothyroidism. CONSULTANTS: Dr. lBack of Cardiology. PROCEDURES: None. HOSPITAL COURSE: This is a 81-year-old lady with known history of atrial fibrillation and atrial flutter who presented to the hospital with hypotension and atrial fibrillation with RVR. The patient also had a recent hospital stay, and thus please refer to the recent discharge summary, as well as H and P by Dr. Anthony Bagley. In summary, this time around, the patient was admitted for a better control of the atrial fibrillation with RVR. The patient has been intolerant to amiodarone therapy, as well as sotalol therapy and thus Dr. Black suggested starting the patient on Tikosyn, and thus the patient was started on Tikosyn therapy. The patient was simply monitored for 72 hours for any life-threatening QT prolongations or development of arrhythmia. The patient was also monitored for stable renal function. The patient tolerated the therapy well, and patient is now being discharged home on Tikosyn with close outpatient followup instructions. There was no other acute issues, although the patient did continue to have chronic abdominal pain with chronic nausea. DISCHARGE DISPOSITION: Home. DISCHARGE MEDICATIONS: 1. Tikosyn 250 mcg p.o. b.i.d. as a new medication. 2. Eliquis 2.5 mg p.o. b.i.d. as a new medication, otherwise no changes. FOLLOWUP: 1. Please follow up with PCP in the next one to two weeks. 2. Please follow up with Cardiology as instructed. A total of 30 minutes spent in coordinating this patient's discharge today. DICTATED BY: David Blair MD Discharge Summary [address] [address] NAME: ALEX THOMPSON : 37 STATUS : DIS IN PAT#: [id number] AGE: 81 ADM/REG DATE : 02/12/17 MR#: [id number] REPORT SERV DATE: 02/16/17 DICTATED BY: DAVID BLAIR DATE: 02/16/17 REPORT STATUS : Draft TRANSCRIBED BY: MODZoe DATE: 02/16/17 [facility] [place] David Blair MD / [id number] CC: MD Nimesh Suero M.D.
--- NOTE | ~2017-02-12 | PRECARD ---
H&P [facility] [address] [facility] [place]. [address] NAME: MELL THOMPSON : 37 STATUS : ADM IN [facility]#: [id number] AGE: 81 ADM/REG DATE : 02/12/17 MR#: [id number] REPORT SERV DATE: 02/13/17 DICTATED BY: CHRIS POLLARD DATE: 02/13/17 REPORT STATUS : Draft TRANSCRIBED BY: LAURA DATE: 02/13/17 DATE OF ADMISSION: 02/12/2017 HISTORY OF PRESENT ILLNESS: Ms. Mell Thompson is a 81-year-old woman who was just discharged from [facility] for 25-day stay, admitted with recurrent palpitations, and abdominal discomfort. Again, she was admitted earlier this month, discharged the day prior to readmission after 25 day hospital stay for cholecystitis, cholecystectomy with lysis of adhesions. This hospital stay was complicated by recurrent atrial flutter with rapid ventricular response. She had been intolerant of sotalol, amiodarone, diltiazem, and beta blockers in the past. She has repeatedly refused, declined oral anticoagulation. Again, she was then discharged on 02/11/2017 after 25 day hospital stay, she was readmitted with palpitations, atrial flutter with rapid ventricular response, hypotension and near syncope. She has had ongoing abdominal discomfort. Now she feels fine. No chest discomfort at all. MEDICATIONS: On admission were glucosamine, Synthroid, multivitamins, Percocet, Protonix, vitamin E, fish oil, and vitamin C. SOCIAL HISTORY: No alcohol or tobacco. FAMILY HISTORY: Noncontributory. REVIEW OF SYSTEMS: A complete review of systems obtained, pertinent negative and remarkable, except as noted above and below, all systems addressed. Denies melena or hematochezia. LABORATORY DATA: BUN is 6, creatinine 0.59, hemoglobin on 02/12/2017 is 14.1 today was 10.9, hematocrit decreased from 39.7 to 32%, troponin less than 0.02, TSH is 7.78. Telemetry currently demonstrates sinus rhythm. EKG on presentation SVT, probable atrial flutter with 2:1 block. ASSESSMENT: Ms. Thompson is a very nice 81-year-old woman with atypical atrial flutter. She has undergone ablation in the past. She did well for several years. She has atypical flutter now. She has been followed closely by Dr. Black of Electrophysiology Service. Again, she is intolerant of amiodarone, sotalol, diltiazem and beta blockers producing either hypotension or bradycardia. I will again defer to EP Service about possible ablation for atrial flutter, AV node ablation with permanent pacemaker, other antiarrhythmic medications, or reconsideration of rate control, which will be difficult because of her hypotension. H&P [address] [address] NAME: MELL THOMPSON : 39 STATUS : ADM IN [facility]#: [id number] AGE: 81 ADM/REG DATE : 02/12/17 MR#: [id number] REPORT SERV DATE: 02/13/17 DICTATED BY: CHRIS POLLARD DATE: 02/13/17 REPORT STATUS : Draft TRANSCRIBED BY: LAURA DATE: 02/13/17 YASH/LAURA Chris Pollard M.D. / [id number] CC: Julisa Barajas M.D.
[~2017-02-12 10:33] MED LIST changes: +BETAPACE80 PO; +PCET PO; +PROTONIX PO; +ZOFRAN ODT4 MG PO
[2017-02-12 10:58] LABS: BASOPHILS 0.2 %; BASOPHILS ABSOLUTE 0.01 10/3/uL (0.0-0.16); EOSINOPHILS 0 %; ER CBC TAT 0 Hrs 05 Mins; LYMPHOCYTES 13.3 %; LYMPHOCYTES ABSOLUTE 0.76 10/3/uL (0.67-4.30); MEAN CORPUS HGB CONC 35.5 g/dL (32.0-36.0); MEAN CORPUSCULAR HEMOGLOB 30.3 pg (26.0-34.0); MEAN PLATELET VOLUME 9.1 fL (9.2-13.0); MONOCYTES 9.3 %; MONOCYTES ABSOLUTE 0.53 10/3/uL (0.21-1.20); NEUTROPHILS 77.2 %; NEUTROPHILS ABSOLUTE 4.42 10/3/uL (2.02-8.40); PLATELET COUNT 324 10/3/uL (150-400); RBC DISTRIBUTION WIDTH 14.7 % (12.0-16.0); WHITE BLOOD CELLS 5.7 10/3/uL (4.5-10.5)
[2017-02-12 10:59] LABS: HEMATOCRIT 39.7 % (36.0-48.0); HEMOGLOBIN 14.1 g/dL (12.0-16.0); MEAN CORPUSCULAR VOLUME 85.4 fL (80-100); RED CELL COUNT 4.65 10/6/uL (4.0-5.6)
[2017-02-12 11:00] LABS: MANUAL DIFF NO %
[2017-02-12 11:05] LABS: INTERNATIONAL NORMAL RATI 1.1 UNITS (-); PARTIAL THROMBO TIME 29.7 SEC (22.5-37.2)
[2017-02-12 11:18] LABS: CALCIUM, SERUM 8.6 MG/DL (8.5-10.4); CHEST PAIN PROFILE TAT 0 Hrs 25 Mins; CHLORIDE, SERUM 102 MMOL/L (96-112); CO2 (CARBON DIOXIDE) 25 MMOL/L (24-34); CREATININE 0.89 MG/DL (0.55-1.02); GFR AFRICAN AMERICAN 71 ML/MIN (>=60); GFR NON AFRICAN AMERICAN 62 ML/MIN (>=60); SODIUM, SERUM 139 MMOL/L (135-148); TROPONIN I <0.02 NG/ML (<0.05)
[2017-02-12 11:19] LABS: POTASSIUM, SERUM 3.8 MMOL/L (3.5-5.3)
[2017-02-12 11:20] LABS: BUN (BLOOD UREA NITROGEN) 5 MG/DL (6-23); GLUCOSE, SERUM 117 MG/DL (60-99)
[2017-02-12 17:27] LABS: BASOPHILS 0.2 %; BASOPHILS ABSOLUTE 0.01 10/3/uL (0.0-0.16); EOSINOPHILS 0.2 %; EOSINOPHILS ABSOLUTE 0.01 10/3/uL (0.0-0.53); HEMOGLOBIN 11.6 g/dL (12.0-16.0); IMMATURE GRANULOCYTES 0.2 %; IMMATURE GRANULOCYTES ABSOLUTE 0.01 10/3/uL (0.0-0.11); LYMPHOCYTES 19.1 %; LYMPHOCYTES ABSOLUTE 0.78 10/3/uL (0.67-4.30); MEAN CORPUS HGB CONC 34.4 g/dL (32.0-36.0); MEAN CORPUSCULAR HEMOGLOB 30.1 pg (26.0-34.0); MEAN CORPUSCULAR VOLUME 87.5 fL (80-100); MEAN PLATELET VOLUME 8.9 fL (9.2-13.0); MONOCYTES 8.8 %; MONOCYTES ABSOLUTE 0.36 10/3/uL (0.21-1.20); NEUTROPHILS 71.5 %; NEUTROPHILS ABSOLUTE 2.92 10/3/uL (2.02-8.40); PLATELET COUNT 252 10/3/uL (150-400); RBC DISTRIBUTION WIDTH 15.1 % (12.0-16.0); RED CELL COUNT 3.85 10/6/uL (4.0-5.6); WHITE BLOOD CELLS 4.1 10/3/uL (4.5-10.5)
[2017-02-12 17:28] LABS: HEMATOCRIT 33.7 % (36.0-48.0); MANUAL DIFF NO %
[2017-02-13 05:40] LABS: BASOPHILS 0.2 %; BASOPHILS ABSOLUTE 0.01 10/3/uL (0.0-0.16); EOSINOPHILS 0.5 %; EOSINOPHILS ABSOLUTE 0.02 10/3/uL (0.0-0.53); HEMOGLOBIN 10.9 g/dL (12.0-16.0); IMMATURE GRANULOCYTES 0.2 %; IMMATURE GRANULOCYTES ABSOLUTE 0.01 10/3/uL (0.0-0.11); LYMPHOCYTES 26.6 %; LYMPHOCYTES ABSOLUTE 1.07 10/3/uL (0.67-4.30); MEAN CORPUS HGB CONC 34.1 g/dL (32.0-36.0); MEAN CORPUSCULAR HEMOGLOB 29.8 pg (26.0-34.0); MEAN CORPUSCULAR VOLUME 87.4 fL (80-100); MEAN PLATELET VOLUME 8.9 fL (9.2-13.0); MONOCYTES 9.2 %; MONOCYTES ABSOLUTE 0.37 10/3/uL (0.21-1.20); NEUTROPHILS 63.3 %; NEUTROPHILS ABSOLUTE 2.55 10/3/uL (2.02-8.40); PLATELET COUNT 229 10/3/uL (150-400); RBC DISTRIBUTION WIDTH 14.8 % (12.0-16.0); RED CELL COUNT 3.66 10/6/uL (4.0-5.6)
[2017-02-13 05:41] LABS: MANUAL DIFF NO %
[2017-02-13 05:50] LABS: BUN (BLOOD UREA NITROGEN) 6 MG/DL (6-23); CHLORIDE, SERUM 107 MMOL/L (96-112); CO2 (CARBON DIOXIDE) 28 MMOL/L (24-34); CREATININE 0.59 MG/DL (0.55-1.02); GFR AFRICAN AMERICAN 101 ML/MIN (>=60); GFR NON AFRICAN AMERICAN 87 ML/MIN (>=60); POTASSIUM, SERUM 3.4 MMOL/L (3.5-5.3); SODIUM, SERUM 143 MMOL/L (135-148)
[2017-02-13 05:51] LABS: CALCIUM, SERUM 7.5 MG/DL (8.5-10.4); GLUCOSE, SERUM 78 MG/DL (60-99)
[2017-02-14 05:24] LABS: BASOPHILS 0.2 %; BASOPHILS ABSOLUTE 0.01 10/3/uL (0.0-0.16); EOSINOPHILS ABSOLUTE 0.05 10/3/uL (0.0-0.53); HEMATOCRIT 32.7 % (36.0-48.0); HEMOGLOBIN 11.3 g/dL (12.0-16.0); IMMATURE GRANULOCYTES 0.2 %; IMMATURE GRANULOCYTES ABSOLUTE 0.01 10/3/uL (0.0-0.11); LYMPHOCYTES 25.4 %; LYMPHOCYTES ABSOLUTE 1.24 10/3/uL (0.67-4.30); MEAN CORPUS HGB CONC 34.6 g/dL (32.0-36.0); MEAN CORPUSCULAR HEMOGLOB 29.9 pg (26.0-34.0); MEAN CORPUSCULAR VOLUME 86.5 fL (80-100); MEAN PLATELET VOLUME 9.1 fL (9.2-13.0); MONOCYTES 8.4 %; MONOCYTES ABSOLUTE 0.41 10/3/uL (0.21-1.20); NEUTROPHILS 64.8 %; NEUTROPHILS ABSOLUTE 3.17 10/3/uL (2.02-8.40); PLATELET COUNT 253 10/3/uL (150-400); RBC DISTRIBUTION WIDTH 15.2 % (12.0-16.0); RED CELL COUNT 3.78 10/6/uL (4.0-5.6); WHITE BLOOD CELLS 4.9 10/3/uL (4.5-10.5)
[2017-02-14 05:27] LABS: MANUAL DIFF NO %
[2017-02-14 05:31] LABS: BUN (BLOOD UREA NITROGEN) 6 MG/DL (6-23); CHLORIDE, SERUM 107 MMOL/L (96-112); CO2 (CARBON DIOXIDE) 28 MMOL/L (24-34); CREATININE 0.57 MG/DL (0.55-1.02); GFR AFRICAN AMERICAN 102 ML/MIN (>=60); GFR NON AFRICAN AMERICAN 88 ML/MIN (>=60); GLUCOSE, SERUM 101 MG/DL (60-99); POTASSIUM, SERUM 4.1 MMOL/L (3.5-5.3); SODIUM, SERUM 140 MMOL/L (135-148)
[2017-02-15 04:23] LABS: BUN (BLOOD UREA NITROGEN) 8 MG/DL (6-23); CALCIUM, SERUM 8.1 MG/DL (8.5-10.4); CHLORIDE, SERUM 108 MMOL/L (96-112); CO2 (CARBON DIOXIDE) 30 MMOL/L (24-34); CREATININE 0.65 MG/DL (0.55-1.02); GFR AFRICAN AMERICAN 98 ML/MIN (>=60); GFR NON AFRICAN AMERICAN 84 ML/MIN (>=60); GLUCOSE, SERUM 103 MG/DL (60-99); POTASSIUM, SERUM 3.9 MMOL/L (3.5-5.3); SODIUM, SERUM 143 MMOL/L (135-148)
[2017-02-16 08:16] LABS: BUN (BLOOD UREA NITROGEN) 8 MG/DL (6-23); CHLORIDE, SERUM 108 MMOL/L (96-112); CO2 (CARBON DIOXIDE) 31 MMOL/L (24-34); CREATININE 0.66 MG/DL (0.55-1.02); GFR AFRICAN AMERICAN 97 ML/MIN (>=60); GFR NON AFRICAN AMERICAN 84 ML/MIN (>=60); GLUCOSE, SERUM 96 MG/DL (60-99); POTASSIUM, SERUM 3.9 MMOL/L (3.5-5.3); SODIUM, SERUM 144 MMOL/L (135-148)
[2017-02-16] MEDS ORDERED: ELIQUIS 2.5 MG2.5 MG PO (12:52)
[2017-02-16] MEDS ORDERED: TIKOSYN250 MCG PO (12:52)
[2017-02-16] MEDS ORDERED: KLOR-CON M2020 MEQ PO (15:19)
[2017-05-26] MEDS ORDERED: GLUCOSAMINEPO PO (18:01)
[2017-05-26] MEDS ORDERED: MAGNESIUM PO ×2 (18:02)
[2017-05-26] MEDS ORDERED: [UNRECOGNIZED DRUG - OTHER] PO ×2 (18:02)
[2017-05-26] MEDS ORDERED: [UNRECOGNIZED DRUG - OTHER] PO (18:02)
[2017-05-26] MEDS ORDERED: NEUR100 PO (18:03)
[2017-05-26] MEDS ORDERED: SYN125 PO (18:03)
[2017-05-26] MEDS ORDERED: VITE PO (18:03)
[2017-05-26] MEDS ORDERED: FISH OIL LIQUID PO (18:03)
[2017-05-26] MEDS ORDERED: KLOR-CON 1010 MEQ PO (18:04)
[2017-05-26] MEDS ORDERED: BIST PO (18:04)
[2017-05-26] MEDS ORDERED: ASAB PO (18:04)
[2017-05-31] MEDS ORDERED: PCET PO (17:52)
[2017-05-31] MEDS ORDERED: MIRALAX POWDER1 PKT PO (17:58)
[2017-05-31] MEDS ORDERED: ACETUDL PO (17:59)
== END 2017-02-16 16:20 | disposition home or self-care (01) | DRG 309 ==
LOC: ER 10:33 → 6NO 14:22 → SSU1 02-13 17:33
PROVIDERS: Emergency Medicine; Internal Medicine; Internal Medicine Cardiovascular Disease
DX: I48.92 Unspecified atrial flutter (principal); R18.8 Other ascites; I72.8 Aneurysm of other specified arteries; I50.20 Unspecified systolic (congestive) heart failure; I95.9 Hypotension, unspecified; I36.1 Nonrheumatic tricuspid (valve) insufficiency; G89.29 Other chronic pain; R10.12 Left upper quadrant pain; M54.9 Dorsalgia, unspecified; I34.0 Nonrheumatic mitral (valve) insufficiency; R91.1 Solitary pulmonary nodule; E03.9 Hypothyroidism, unspecified; I35.0 Nonrheumatic aortic (valve) stenosis; I47.1 Supraventricular tachycardia; J02.9 Acute pharyngitis, unspecified; R00.1 Bradycardia, unspecified; I49.3 Ventricular premature depolarization; I48.0 Paroxysmal atrial fibrillation; M51.37 Other intervertebral disc degeneration, lumbosacral region; T44.7X5D Adverse effect of beta-adrenoreceptor antagonists, subsequent encounter; T46.2X5D Adverse effect of other antidysrhythmic drugs, subsequent encounter; Z98.890 Other specified postprocedural states; Z87.442 Personal history of urinary calculi
CPT/HCPCS: 36415; 76856; 80048; 82533; 83605; 83735; 84443; 84484; 85025; 85610; 85730; 86850; 86900; 86901; 93005; 93306; 96360; 99285; A9270-GY; J1170; J2405; J3475

== ENCOUNTER 2017-03-06 10:35 | Inpatient (IN) | payer MEDICARE, OTHER ==
--- NOTE | ~2017-03-06 | HP ---
History And Physical [facility] [address] [place]. [address] NAME: MELL THOMPSON : 39 STATUS : ADM [place] PAT#: [id number] AGE: 81 ADM/REG DATE : 03/06/17 MR#: [id number] REPORT SERV DATE: 03/07/17 DICTATED BY: KG DARLING DATE: 03/06/17 REPORT STATUS : Draft TRANSCRIBED BY: LAURA DATE: 03/06/17 DATE OF ADMISSION: 03/06/2017 CV PHYSICIAN: Dr. Pollard. HISTORY OF PRESENT ILLNESS: Mell Thompson is a 81-year-old female, presents to the emergency room with atrial fibrillation, RVR. She apparently has had ongoing issues with atrial fibrillation and a rapid ventricular response. She was hospitalized up until two weeks ago. She was on Tikosyn 250 mcg b.i.d. She woke 05:00 a.m. this morning with rapid heart rate and dizziness as well as some low blood pressure. She presented to the emergency room, found to be in atrial fibrillation with RVR. The patient has been intolerant, and unable to take multiple antiarrhythmics including amiodarone and sotalol. She has apparently been intolerant to beta blockers and calcium tracey secondary to hypotension. She absolutely refuses oral anticoagulation. I attempted to discuss this with the patient. She states she simply does not like the idea. Her daughter states that she will take it in the hospital, but she will not take it at home. The patient feels a bit better and less lightheaded after a liter of IV fluids. Systolic blood pressures in the 80s. Heart rate 130 to 150 beats per minute. The ER contacted [facility] for admission of this patient and spoke with Dr. Green, who advised admission to the Atrial Fibrillation Observation Unit. Therefore, I presented to evaluate the patient. She does not really qualify for Atrial Fibrillation Observation Unit as she was unable to be cardioverted, and does not have any desire, and refused to take oral anticoagulation. To that end, we will transition to Dr. Pollard her sky line yarder, and we will continue Tikosyn, add digoxin and IV fluids. PAST MEDICAL HISTORY: Atrial flutter, atrial fibrillation, sick sinus syndrome, hypothyroidism, tricuspid regurgitation, tachy-franklin syndrome, back pain. SOCIAL HISTORY: , five children, no tobacco, no alcohol. FAMILY HISTORY: Noted for premature CAD in her father. REVIEW OF SYSTEMS: As per the HPI. Otherwise, all other review of systems negative. PHYSICAL EXAMINATION: VITAL SIGNS: Blood pressure 87/58, pulse 130, respiratory rate is 18. GENERAL: Appears stated age, no distress. EYES: Sclerae anicteric, no arcus senilis. MOUTH: Oral mucosa moist, lips acyanotic. NECK: Jugular venous pressure normal, no carotid bruits. LUNGS: Clear to auscultation bilaterally, normal inspiratory effort. CARDIAC: Irregular rhythm, tachycardic, no murmurs, gallops or rubs. ABDOMEN: Soft, nondistended, nontender. EXTREMITIES: No edema. History And Physical [address] [address] NAME: MELL THOMPSON : 39 STATUS : ADM [place] PAT#: [id number] AGE: 81 ADM/REG DATE : 03/06/17 MR#: [id number] REPORT SERV DATE: 03/07/17 DICTATED BY: KG DARLING DATE: 03/06/17 REPORT STATUS : Draft TRANSCRIBED BY: LAURA DATE: 03/06/17 SKIN: Warm and dry. NEURO/PSYCH: Alert and oriented, nonfocal, mood appropriate. MEDICATIONS: Medications at home with [facility] medicine form and reviewed. ALLERGIES: LISTED THERE WELL. DATA: Sodium is 140, potassium 5.0, creatinine 0.8. Hemoglobin 13.5. Troponin 0.02. TSH 3.8. BNP 269. Chest x-ray is reported by the emergency room with no acute process. EKG is atrial fibrillation with rapid ventricular response. QTc is 428. RSR prime pattern noted in leads V1, V2. IMPRESSION: 1. Atrial fibrillation with rapid ventricular response-paroxysmal. 2. Intolerance to multiple antiarrhythmic medications. 3. Refusal to take oral anticoagulation. 4. History of sick sinus syndrome. RECOMMENDATIONS: Discussed situation with the patient and daughter. I have clearly advised them that refusal to take oral anticoagulation limits our ability to treat the patient, specifically we were unable to cardiovert her. After discussion, she still declines oral anticoagulation. To that end, we will admit the patient overnight to continue her Tikosyn in hopes that she will return to sinus rhythm. Add digoxin and continue IV fluids. Otherwise, keep her n.p.o. after midnight. Other treatment options for her would be consideration of permanent pacemaker implant and ablation of her AV conducting system. Implication of this including pacemaker dependency discussed with the patient. All questions answered. Last echo ejection fractions is reported at 45% from 02/14/2017, previously reported at 55% in December. JHONNY/LAURA Kg Darling M.D. / [id number] CC: Julisa Kramer M.D.
[~2017-03-06 10:35] MED LIST changes: +KLOR-CON M2020 MEQ PO; +TIKOSYN250 MCG PO
[2017-03-06 10:51] LABS: BASOPHILS 0 %; EOSINOPHILS 0.8 %; EOSINOPHILS ABSOLUTE 0.05 10/3/uL (0.0-0.53); ER CBC TAT 0 Hrs 05 Mins; HEMATOCRIT 39.7 % (36.0-48.0); HEMOGLOBIN 13.5 g/dL (12.0-16.0); IMMATURE GRANULOCYTES 0.2 %; IMMATURE GRANULOCYTES ABSOLUTE 0.01 10/3/uL (0.0-0.11); LYMPHOCYTES 19.2 %; LYMPHOCYTES ABSOLUTE 1.18 10/3/uL (0.67-4.30); MANUAL DIFF NO %; MEAN CORPUSCULAR HEMOGLOB 29.5 pg (26.0-34.0); MEAN CORPUSCULAR VOLUME 86.9 fL (80-100); MEAN PLATELET VOLUME 10.2 fL (9.2-13.0); MONOCYTES 8.3 %; MONOCYTES ABSOLUTE 0.51 10/3/uL (0.21-1.20); NEUTROPHILS 71.5 %; NEUTROPHILS ABSOLUTE 4.41 10/3/uL (2.02-8.40); PLATELET COUNT 181 10/3/uL (150-400); RBC DISTRIBUTION WIDTH 14.9 % (12.0-16.0); RED CELL COUNT 4.57 10/6/uL (4.0-5.6); WHITE BLOOD CELLS 6.2 10/3/uL (4.5-10.5)
[2017-03-06 10:59] LABS: INTERNATIONAL NORMAL RATI 1.1 UNITS (-); PARTIAL THROMBO TIME 26.1 SEC (22.5-37.2); PROTIME (NOT ORD) 13.9 SEC (12.0-14.5)
[2017-03-06 11:13] LABS: CHEST PAIN PROFILE TAT 0 Hrs 27 Mins; CHLORIDE, SERUM 110 MMOL/L (96-112); CREATININE 0.81 MG/DL (0.55-1.02); GFR AFRICAN AMERICAN 80 ML/MIN (>=60); GFR NON AFRICAN AMERICAN 69 ML/MIN (>=60); GLUCOSE, SERUM 98 MG/DL (60-99); SODIUM, SERUM 140 MMOL/L (135-148); TROPONIN I <0.02 NG/ML (<0.05)
[2017-03-06 11:15] LABS: BUN (BLOOD UREA NITROGEN) 17 MG/DL (6-23); CALCIUM, SERUM 9.1 MG/DL (8.5-10.4); CO2 (CARBON DIOXIDE) 23 MMOL/L (24-34); POTASSIUM, SERUM 5.1 MMOL/L (3.5-5.3)
[2017-03-06] MEDS ORDERED: TIKOSYN250 MCG PO (12:46)
[2017-03-06] MEDS ORDERED: GLUCOSAMINEPO PO (12:47)
[2017-03-06] MEDS ORDERED: MAG OXIDE250 MG PO (12:47)
[2017-03-06] MEDS ORDERED: FISH OIL LIQUID PO (12:48)
[2017-03-06] MEDS ORDERED: PROBIOTIC PO (12:48)
[2017-03-06] MEDS ORDERED: SYN125 PO (12:49)
[2017-03-06] MEDS ORDERED: VITE1000 PO (12:49)
[2017-03-06] MEDS ORDERED: KLOR-CON M2020 MEQ PO (12:50)
[2017-03-06] MEDS ORDERED: PROTONIX PO (12:50)
[2017-03-06] MEDS ORDERED: MAGNESIUM CITRATE PO (12:51)
[2017-03-06] MEDS ORDERED: ASAB PO (12:51)
[2017-03-06] MEDS ORDERED: BIST PO (12:51)
[2017-03-06] MEDS ORDERED: NEUR100 PO (12:52)
[2017-03-06] MEDS ORDERED: MULTIVIT/MIN PO (12:53)
[2017-03-06] MEDS ORDERED: ENDOCET1 TAB PO (12:55)
[2017-03-06 15:43] LABS: ALBUMIN 3.7 G/DL (3.5-5.0); ALKALINE PHOSPHATASE 77 U/L (45-117); DIRECT BILIRUBIN 0.1 MG/DL (0.0-0.4); INDIRECT BILIRUBIN(NOT ORDER) 0.4 MG/DL (0.1-0.9); SGOT(AST) 16 U/L (5-40); SGPT(ALT) 27 U/L (5-65); TOTAL BILIRUBIN 0.5 MG/DL (0-1.2); TOTAL PROTEIN 6.9 G/DL (6.0-8.5)
[2017-03-07 04:50] LABS: BASOPHILS 0.2 %; BASOPHILS ABSOLUTE 0.01 10/3/uL (0.0-0.16); EOSINOPHILS 1.4 %; EOSINOPHILS ABSOLUTE 0.07 10/3/uL (0.0-0.53); HEMOGLOBIN 10.8 g/dL (12.0-16.0); IMMATURE GRANULOCYTES 0.2 %; IMMATURE GRANULOCYTES ABSOLUTE 0.01 10/3/uL (0.0-0.11); LYMPHOCYTES 28.9 %; LYMPHOCYTES ABSOLUTE 1.43 10/3/uL (0.67-4.30); MEAN CORPUS HGB CONC 34.1 g/dL (32.0-36.0); MEAN CORPUSCULAR HEMOGLOB 29.9 pg (26.0-34.0); MEAN CORPUSCULAR VOLUME 87.8 fL (80-100); MEAN PLATELET VOLUME 9.7 fL (9.2-13.0); MONOCYTES 6.9 %; MONOCYTES ABSOLUTE 0.34 10/3/uL (0.21-1.20); NEUTROPHILS 62.4 %; NEUTROPHILS ABSOLUTE 3.09 10/3/uL (2.02-8.40); PLATELET COUNT 169 10/3/uL (150-400); RBC DISTRIBUTION WIDTH 14.7 % (12.0-16.0)
[2017-03-07 04:51] LABS: HEMATOCRIT 31.7 % (36.0-48.0); MANUAL DIFF NO %; RED CELL COUNT 3.61 10/6/uL (4.0-5.6)
[2017-03-07 04:56] LABS: INTERNATIONAL NORMAL RATI 1.2 UNITS (-); PARTIAL THROMBO TIME 28.1 SEC (22.5-37.2); PROTIME (NOT ORD) 14.7 SEC (12.0-14.5)
[2017-03-07 05:11] LABS: BUN (BLOOD UREA NITROGEN) 16 MG/DL (6-23); CHLORIDE, SERUM 112 MMOL/L (96-112); CO2 (CARBON DIOXIDE) 21 MMOL/L (24-34); CREATININE 0.73 MG/DL (0.55-1.02); GFR AFRICAN AMERICAN 91 ML/MIN (>=60); GFR NON AFRICAN AMERICAN 78 ML/MIN (>=60); GLUCOSE, SERUM 86 MG/DL (60-99); POTASSIUM, SERUM 4.9 MMOL/L (3.5-5.3); SODIUM, SERUM 139 MMOL/L (135-148)
[2017-03-07 05:14] LABS: CALCIUM, SERUM 8.1 MG/DL (8.5-10.4)
[2017-03-08 05:27] LABS: BASOPHILS 0.2 %; BASOPHILS ABSOLUTE 0.01 10/3/uL (0.0-0.16); EOSINOPHILS 0.9 %; EOSINOPHILS ABSOLUTE 0.04 10/3/uL (0.0-0.53); HEMOGLOBIN 11.7 g/dL (12.0-16.0); IMMATURE GRANULOCYTES 0.2 %; IMMATURE GRANULOCYTES ABSOLUTE 0.01 10/3/uL (0.0-0.11); LYMPHOCYTES 32.3 %; LYMPHOCYTES ABSOLUTE 1.37 10/3/uL (0.67-4.30); MEAN CORPUS HGB CONC 34.4 g/dL (32.0-36.0); MEAN CORPUSCULAR HEMOGLOB 30.2 pg (26.0-34.0); MEAN CORPUSCULAR VOLUME 87.6 fL (80-100); MONOCYTES 8.3 %; MONOCYTES ABSOLUTE 0.35 10/3/uL (0.21-1.20); NEUTROPHILS 58.1 %; NEUTROPHILS ABSOLUTE 2.46 10/3/uL (2.02-8.40); PLATELET COUNT 174 10/3/uL (150-400); RBC DISTRIBUTION WIDTH 14.7 % (12.0-16.0); RED CELL COUNT 3.88 10/6/uL (4.0-5.6); WHITE BLOOD CELLS 4.2 10/3/uL (4.5-10.5)
[2017-03-08 05:30] LABS: MANUAL DIFF NO %
[2017-03-08 05:34] LABS: CALCIUM, SERUM 8.9 MG/DL (8.5-10.4); CHLORIDE, SERUM 110 MMOL/L (96-112); GFR AFRICAN AMERICAN 100 ML/MIN (>=60); GFR NON AFRICAN AMERICAN 87 ML/MIN (>=60); GLUCOSE, SERUM 86 MG/DL (60-99); POTASSIUM, SERUM 4.5 MMOL/L (3.5-5.3); SODIUM, SERUM 142 MMOL/L (135-148)
[2017-03-08 05:35] LABS: BUN (BLOOD UREA NITROGEN) 10 MG/DL (6-23); CO2 (CARBON DIOXIDE) 26 MMOL/L (24-34)
[2017-05-26] MEDS ORDERED: GLUCOSAMINEPO PO (18:01)
[2017-05-26] MEDS ORDERED: [UNRECOGNIZED DRUG - OTHER] PO ×2 (18:02)
[2017-05-26] MEDS ORDERED: [UNRECOGNIZED DRUG - OTHER] PO (18:02)
[2017-05-26] MEDS ORDERED: MAGNESIUM PO ×2 (18:02)
[2017-05-26] MEDS ORDERED: NEUR100 PO (18:03)
[2017-05-26] MEDS ORDERED: FISH OIL LIQUID PO (18:03)
[2017-05-26] MEDS ORDERED: VITE PO (18:03)
[2017-05-26] MEDS ORDERED: SYN125 PO (18:03)
[2017-05-26] MEDS ORDERED: BIST PO (18:04)
[2017-05-26] MEDS ORDERED: ASAB PO (18:04)
[2017-05-26] MEDS ORDERED: KLOR-CON 1010 MEQ PO (18:04)
[2017-05-31] MEDS ORDERED: PCET PO (17:52)
[2017-05-31] MEDS ORDERED: MIRALAX POWDER1 PKT PO (17:58)
[2017-05-31] MEDS ORDERED: ACETUDL PO (17:59)
== END 2017-03-09 10:42 | disposition home or self-care (01) | DRG 243 ==
LOC: ER 10:35 → CDU1 12:39 → SSU1 03-08 15:46
PROVIDERS: Anesthesiology; Emergency Medicine; Internal Medicine Cardiovascular Disease
PROC: 0JH606Z Insertion of Pacemaker, Dual Chamber into Chest Subcutaneous Tissue and Fascia, Open Approach (ICD-10-PCS; principal; 2017-03-08)
PROC: 02HK3JZ Insertion of Pacemaker Lead into Right Ventricle, Percutaneous Approach (ICD-10-PCS; 2017-03-08)
PROC: 02H63JZ Insertion of Pacemaker Lead into Right Atrium, Percutaneous Approach (ICD-10-PCS; 2017-03-08)
PROC: 02583ZZ Destruction of Conduction Mechanism, Percutaneous Approach (ICD-10-PCS; 2017-03-08)
DX: I48.0 Paroxysmal atrial fibrillation (principal); K56.7 Ileus, unspecified; I49.5 Sick sinus syndrome; I72.8 Aneurysm of other specified arteries; I07.1 Rheumatic tricuspid insufficiency; E03.9 Hypothyroidism, unspecified; I51.7 Cardiomegaly; D64.9 Anemia, unspecified; I44.2 Atrioventricular block, complete; Z53.29 Procedure and treatment not carried out because of patient's decision for other reasons; I77.1 Stricture of artery; Z82.49 Family history of ischemic heart disease and other diseases of the circulatory system
CPT/HCPCS: 33208; 71010; 80048; 80076; 82962; 83735; 83880; 84439; 84443; 84484; 85025; 85610; 85730; 93005; 93650; 99285; A9270-GY; C1733; C1785; C1892; C1894; C1898; J0330; J0690; J1160; J2405; J3010; Q9967

== ENCOUNTER 2017-03-14 09:00 | Emergency (ER) | payer MEDICARE, SELFPAY ==
[2017-03-14 08:26] LABS: BASOPHILS 0.4 %; BASOPHILS ABSOLUTE 0.02 10/3/uL (0.0-0.16); EOSINOPHILS 1.5 %; EOSINOPHILS ABSOLUTE 0.07 10/3/uL (0.0-0.53); ER CBC TAT 0 Hrs 08 Mins; HEMATOCRIT 38.2 % (36.0-48.0); IMMATURE GRANULOCYTES 0.2 %; IMMATURE GRANULOCYTES ABSOLUTE 0.01 10/3/uL (0.0-0.11); LYMPHOCYTES 20.2 %; LYMPHOCYTES ABSOLUTE 0.94 10/3/uL (0.67-4.30); MANUAL DIFF NO %; MEAN CORPUSCULAR HEMOGLOB 30.1 pg (26.0-34.0); MEAN CORPUSCULAR VOLUME 88.4 fL (80-100); MEAN PLATELET VOLUME 9.4 fL (9.2-13.0); MONOCYTES 8.6 %; NEUTROPHILS 69.1 %; NEUTROPHILS ABSOLUTE 3.21 10/3/uL (2.02-8.40); PLATELET COUNT 201 10/3/uL (150-400); RBC DISTRIBUTION WIDTH 14.7 % (12.0-16.0); RED CELL COUNT 4.32 10/6/uL (4.0-5.6); WHITE BLOOD CELLS 4.7 10/3/uL (4.5-10.5)
[2017-03-14 08:41] LABS: A/G RATIO 1.3 (0.7-1.9); ALBUMIN 3.9 G/DL (3.5-5.0); ALKALINE PHOSPHATASE 80 U/L (45-117); CALCIUM, SERUM 9.4 MG/DL (8.5-10.4); CHLORIDE, SERUM 105 MMOL/L (96-112); CO2 (CARBON DIOXIDE) 28 MMOL/L (24-34); GFR AFRICAN AMERICAN 81 ML/MIN (>=60); GFR NON AFRICAN AMERICAN 70 ML/MIN (>=60); GLUCOSE, SERUM 99 MG/DL (60-99); POTASSIUM, SERUM 4.4 MMOL/L (3.5-5.3); SGOT(AST) 21 U/L (5-40); SGPT(ALT) 21 U/L (5-65); SODIUM, SERUM 138 MMOL/L (135-148); TOTAL BILIRUBIN 0.7 MG/DL (0-1.2)
[2017-03-14 08:43] LABS: BUN (BLOOD UREA NITROGEN) 16 MG/DL (6-23); GLOBULIN 3.1 G/DL (2.5-4.1)
[2017-03-14 08:48] LABS: LACTATE 0.9 MMOL/L (0.3-2.4)
[~2017-03-14 09:00] MED LIST changes: +BIST PO; +ENDOCET1 TAB PO; +MAG OXIDE250 MG PO; +MAGNESIUM CITRATE PO; +MULTIVIT/MIN PO; +NEUR100 PO; +VITE1000 PO
[2017-03-14 09:28] LABS: ASCORBIC ACID (UR NOT ORDER) NEG (NEG); BILIRUBIN, URINE NEGATIVE (NEG); ER URINALYSIS TAT 0 Hrs 13 Mins; KETONE, URINE NEGATIVE (NEG); LEUKOCYTE ESTERASE(NOT OR MOD (NEG); NITRITE (URINE) NEG (NEG); WBC (NOT ORDERED) (RFLEX) 7 (0-5)
[2017-05-26] MEDS ORDERED: GLUCOSAMINEPO PO (18:01)
[2017-05-26] MEDS ORDERED: MAGNESIUM PO ×2 (18:02)
[2017-05-26] MEDS ORDERED: [UNRECOGNIZED DRUG - OTHER] PO (18:02)
[2017-05-26] MEDS ORDERED: [UNRECOGNIZED DRUG - OTHER] PO ×2 (18:02)
[2017-05-26] MEDS ORDERED: SYN125 PO (18:03)
[2017-05-26] MEDS ORDERED: VITE PO (18:03)
[2017-05-26] MEDS ORDERED: FISH OIL LIQUID PO (18:03)
[2017-05-26] MEDS ORDERED: NEUR100 PO (18:03)
[2017-05-26] MEDS ORDERED: BIST PO (18:04)
[2017-05-26] MEDS ORDERED: KLOR-CON 1010 MEQ PO (18:04)
[2017-05-26] MEDS ORDERED: ASAB PO (18:04)
[2017-05-31] MEDS ORDERED: PCET PO (17:52)
[2017-05-31] MEDS ORDERED: MIRALAX POWDER1 PKT PO (17:58)
[2017-05-31] MEDS ORDERED: ACETUDL PO (17:59)
== END 2017-03-14 12:57 | disposition home or self-care (01) ==
LOC: ER 09:00
PROVIDERS: Physician Assistant
DX: R91.1 Solitary pulmonary nodule (principal); N39.0 Urinary tract infection, site not specified; R10.9 Unspecified abdominal pain; I48.91 Unspecified atrial fibrillation; Z87.442 Personal history of urinary calculi; Z79.899 Other long term (current) drug therapy; Z79.82 Long term (current) use of aspirin
CPT/HCPCS: 71010; 74176; 80053; 81001; 83605; 83690; 85025; 87086; 96374; 96375; 99285; J2405